=== PATIENT | female | born 1990 | race Two or more races ===

== ENCOUNTER → 2020-11-03 13:00 | Outpatient (BNVA) | payer OTHER, SELFPAY | PROVIDERS: Visit Provider Nurse Practitioner | DX: Z76.89 Persons encountering health services in other specified circumstances (principal) ==

== ENCOUNTER 2020-11-25 13:19 | Outpatient (REF) | payer OTHER, SELFPAY | END 2020-11-25 13:20 | disposition home or self-care (01) | LOC: HO.LNP 13:19 | PROVIDERS: Visit Provider Nurse Practitioner | DX: K21.9 Gastro-esophageal reflux disease without esophagitis (principal); K58.9 Irritable bowel syndrome, unspecified | CPT/HCPCS: 87338 ==

== ENCOUNTER 2021-03-27 09:40 | Outpatient (REF) | payer OTHER, SELFPAY ==
[2021-03-27 11:55] LABS: Basophils Absolute Auto 0.1 X10*3/uL (0.0-0.2); Eosinophils Absolute Auto 0.1 X10*3/uL (0.0-0.4); Imm Gran Abs Auto 0.01 X10*3/uL (0.00-0.03); MANUAL DIFF FLAG SCAN; PLT CLUMP 1; SCAN SMEAR FLAG 1
[2021-03-27 11:57] LABS: Basophils Percent Auto 1.1 % (0-2); Eosinophils Percent Auto 2.2 % (0-4); Hematocrit 41.3 % (37-47); Hemoglobin 13.8 g/dl (12.0-16.0); Imm Gran Pct Auto 0.2 % (0.0-0.4); Lymphocytes Absolute Auto 3.3 X10*3/uL (1.2-4.9); Lymphocytes Percent Auto 50.9 % (20-40); Mean Corpuscular HGB Conc 33.4 g/dl (31.0-35.0); Mean Corpuscular Hemoglobin 30.7 pg (27.0-33.0); Monocytes Absolute Auto 0.3 X10*3/uL (0.1-1.2); Monocytes Percent Auto 4.7 % (2-11); Neutrophils Absolute Auto 2.6 X10*3/uL (2.0-8.3); Neutrophils Percent Auto 40.9 % (45-73); Platelet Count 180 X10*3/uL (160-400); Red Blood Count 4.49 X10*6/uL (4.20-5.50); Red Cell Distribution Width 12.2 % (11.0-16.0); White Blood Count 6.4 X10*3/uL (4.8-10.8)
[2021-03-27 12:24] LABS: SLIDE REVIEW VERIFIED
[2021-03-27 13:52] LABS: Alanine Aminotransferase 9 U/L (0-31); Albumin Level 4.4 g/dL (3.5-5.0); Alkaline Phosphatase 65 U/L (39-117); Anion Gap 19 (12-20); Aspartate Amino Transferase 24 U/L (5-31); Blood Urea Nitrogen 8 mg/dL (9-16); Calcium 9.2 mg/dL (8.4-10.2); Carbon Dioxide 14 mmol/L (22-29); Chloride 110 mmol/L (96-108); Estimated Glomerular Filt Rate > 60; Glucose Random 85 mg/dL (60-115); Potassium 5.4 mmol/L (3.3-5.1); Sodium 138 mmol/L (135-145)
== END 2021-03-27 09:41 | disposition home or self-care (01) ==
LOC: HO.LAB 09:40
PROVIDERS: Visit Provider Nurse Practitioner
DX: R10.13 Epigastric pain (principal); K21.9 Gastro-esophageal reflux disease without esophagitis; K58.2 Mixed irritable bowel syndrome; R14.0 Abdominal distension (gaseous); Z79.899 Other long term (current) drug therapy
CPT/HCPCS: 36415; 80053; 85025; 99212

== ENCOUNTER 2021-04-14 08:10 | Outpatient (REF) | payer OTHER, SELFPAY ==
--- NOTE | ~2021-04-14 | US_ITS ---
EXAMINATION: US ABDOMEN COMPLETE CLINICAL INFORMATION: Epigastric pain. COMPARISON: Limited abdominal ultrasound 11/07/2019. Ultrasound abdomen complete 07/11/2019. TECHNIQUE: Real-time imaging of the abdominal viscera. FINDINGS: PANCREAS: Not well visualized due to bowel gas ABDOMINAL AORTA: The proximal, mid, and distal segments are normal in caliber. INFERIOR VENA CAVA: Visualized portions are normal. LIVER: The liver is normal in size. The liver contour is normal. Parenchymal echogenicity is normal. No focal hepatic lesion. There is no intrahepatic biliary duct dilatation seen. GALLBLADDER: Normal. The gallbladder is physiologically distended without evidence of stones, sludge, polyps, wall thickening or pericholecystic fluid. COMMON BILE DUCT: Normal in caliber measuring 0.5 cm in diameter. RIGHT KIDNEY: Normal. No hydronephrosis. No renal calculi or focal parenchymal lesions. The kidney measures 11.0 cm in maximum dimension. LEFT KIDNEY: There is a 4 mm echogenic density with twinkle artifact questionable for stones in the mid and lower pole. No hydronephrosis or focal parenchymal lesions. The kidney measures 10.4 cm in maximum dimension. SPLEEN: Normal. The spleen measures 9.0 cm in maximum dimension. FREE FLUID: None. US/US abdomen complete IMPRESSION: Question small left renal stones otherwise unremarkable exam.
== END 2021-04-14 08:11 | disposition home or self-care (01) ==
LOC: HO.US 08:10
PROVIDERS: Visit Provider Nurse Practitioner
DX: R10.13 Epigastric pain (principal); R14.0 Abdominal distension (gaseous)
CPT/HCPCS: 76700

== ENCOUNTER 2021-07-07 05:51 | Emergency (ER) | payer OTHER, SELFPAY ==
--- NOTE | ~2021-07-07 | XR_ITS ---
EXAMINATION: XR KNEE, RIGHT CLINICAL INFORMATION: Fall. Pain. COMPARISON: None TECHNIQUE: Four views of the right knee. FINDINGS: Bones and soft tissues are normal. No fracture or joint effusion. Alignment is anatomic. Joint spaces are well maintained. No abnormal soft tissue calcification. XR/XR knee RT 4V IMPRESSION: Normal right knee.
[2021-07-07 06:40] VITALS: BP 122/73; PULSE 73; RESP 16; TEMP 36.8; O2SAT 99; BMI 27.7
--- NOTE | 2021-07-07 09:21 | ED_ITS ---
HPI - Extremity Injury (Lower) General Chief Complaint: Extremity Injury, Lower Stated Complaint: fall from possible dislocated knee Time Seen by Provider: 07/07/21 09:09 Source: patient Mode of arrival: ambulatory Limitations: language barrier ([place] Citizen-speaking) History of Present Illness HPI Narrative: 30-year-old female presenting to the ED with complaints of right intermittent knee pain over the past month after she twisted her knee in [place] while taking her shoes off and she was seen by the doctor there and then they performed an x-ray and told her that she had this alignment of her patella and some fluid in her knee joint and they recommended surgery although patient declined surgery due to she was in [place] and wanted to come back to the [place] to get surgery if she needed surgery. She reports before she twisted her knee in [place] she was already having problems with her right knee prior to that. She reports this morning she twisted her knee again and she had extreme pain although her pain has subsided since she has been here. She reports that she is taking Motrin and she has only mild to no symptomatic relief. She reports she has been trying to find a primary care provider and she has been unable to find a primary care provider. She is requesting an MRI at this time. She denies any other symptoms complaints or concerns. She denies head injury or loss of consciousness. She denies any weakness. MD complaint: knee injury Onset (ago): month(s) (1 month ago) Injury: Right: knee Type of Injury: other (Patient reports she twisted the knee) Place: street/outdoors (In [facility]) Severity: mild Relieving factors: nothing Exacerbating factors: weight bearing, movement and palpation Context: other (Twist injury) Other symptoms: none Treatments prior to arrival: NSAIDS and splint (Knee immobilizer) Related Data Home Medications Medication Instructions Recorded Confirmed wheat dextrin 3 gram/3.5 gram oral 1.5 g PO BID 10/06/20 10/06/20 powder packet (Benefiber Clear Sugar Free(dextrin)) Previous Rx's Medication Instructions Recorded dicyclomine 10 mg capsule See Rx Instructions PO QID PRN 11/03/20 #180 cap simethicone 180 mg capsule 180 mg PO TID 30 Days #90 cap 11/03/20 metronidazole 500 mg tablet 500 mg PO TID 10 Days #30 tab 03/27/21 (Flagyl) pantoprazole 40 mg tablet,delayed 40 mg PO BID 30 Days #60 tab 03/27/21 release (Protonix) hydrocodone 5 mg-acetaminophen 325 1 tab PO Q8H PRN #10 tab 07/07/21 mg tablet ibuprofen 800 mg tablet 800 mg PO Q8H PRN #14 tab 07/07/21 lidocaine HCl 4 % topical cream 1 appl TOPICAL BID PRN #120 g 07/07/21 (Aspercreme (lidocaine HCl)) Allergies Allergy/AdvReac Type Severity Reaction Status Date / Time No Known Allergies Allergy Verified 03/27/21 09:44 [No Known Allergies*] Review of Systems Review of Systems: Constitutional : No lethargy ENT/Mouth : No Ear Pain, No Nasal discharge/drainage Eyes: No Eye Pain, No Swelling, No Redness, No Foreign Body, No Vision Changes Cardiovascular : No Chest Pain, No SOB Respiratory : No Cough Gastrointestinal : No Nausea, No Vomiting, No abdominal Pain Genitourinary : No Dysuria, No Urinary Frequency, No Urinary Incontinence, No Urgency, No Flank Pain Musculoskeletal : + joint pain, No neck stiffness, No back pain/injury Skin : No lacerations Neuro : No unsteady gait, No Paresthesias, No Loss of Consciousness, No altered mental status, No Headache Yes all other systems are reviewed and are negative [facility] Past Medical History Attestation statement: The following information was validated with the patient. Surgical History History of esophagogastroduodenoscopy Family History Family History Father Stroke Mother Hypothyroidism Social History Social History Alcohol intake: current Alcohol intake frequency: does not drink Advance Directives: No Advance Directives Information Provided: No Patient : No Physical Exam Vital Signs: Vital Signs: Last Vital Signs Temp 98.3 F 07/07/21 06:40 Pulse 73 07/07/21 06:40 Resp 16 07/07/21 06:40 BP 122/73 07/07/21 06:40 Pulse Ox 99 07/07/21 06:40 Body Mass Index 27.7 vital signs have been reviewed as normal and appeared to be correct. Blood pressure normal. Heart rate normal. Respiration rate normal. Temperature nor mal. Oxygen saturation normal. Appearance: Alert. Oriented X3. No acute distress. Head: Normal external exam. Normocephalic. Atraumatic. Eyes: PERRLA. EOMI. Conjunctiva and sclera normal. Eyelids normal. ENT:Pharynx normal. Uvula midline. Moist mucous membranes. Neck: Normal inspection. Neck supple. FROM. No adenopathy. No meningeal signs. CVS: Normal heart rate and rhythm. Respiratory: No respiratory distress. Painless inspiration. Back: Full range of motion noted. No rashes/lesion/induration/fluctuance or signs of infection noted. Skin: Skin warm and dry. Normal skin color. Normal skin turgor. No rashes/lesions/lacerations noted. Extremities: Patient mild tenderness to palpation to patella joint no obvious deformities or ligamentous laxity or signs of infection. Patient has full range of motion of the right knee. No soft tissue swelling or edema noted on my exam. No calf tenderness is noted bilaterally. No lower extremity edema. Extremi ties exhibit normal range of motion. Extremities nontender. Neuro: Oriented X 3. No motor deficit. No sensory deficit. Reflexes normal. Normal steady gait. No focal neuro deficits noted. Course Course Course Narrative: 30-year-old female presenting to the ED with intermittent right knee pain over the past month. X-ray obtained and negative for any acute processes. Patient requesting MRI although explained to her that she does not need an emergent MRI therefore I explained to her that she can keep wearing her knee immobilizer that she bought [id number] and she can follow-up with orthopedics over the next month and will DC home with symptomatic treatment instructions to return if any new or worsening symptoms to follow up with primary care provider with the possible referrals and I gave her for PCP that she will need to call on her own. She understands agrees with this plan. MDM - Extremity Injury (Lower) Medical Records Attestation: I reviewed the patient's medical records. Imaging Data Right knee x-ray: Attestation: I personally reviewed and interpreted this imaging study as follows: Radiologist's impression: FINDINGS: Bones and soft tissues are normal. No fracture or joint effusion. Alignment is anatomic. Joint spaces are well maintained. No abnormal soft tissue calcification.? XR/XR knee RT 4V IMPRESSION: Normal right knee. Discharge Plan Discharge Clinical Impression: Right knee sprain Patient Disposition: Home, Self-Care Instructions: Knee Sprain (ED), How to Use an Elastic Bandage (ED) Prescriptions: New ibuprofen 800 mg tablet 800 mg PO Q8H PRN (Reason: pain) Qty: 14 RF: 0 hydrocodone-acetaminophen 5-325 mg tablet 1 tab PO Q8H PRN (Reason: pain) Qty: 10 RF: 0 lidocaine HCl [Aspercreme (lidocaine HCl)] 4 % cream 1 appl topical BID PRN (Reason: pain) Qty: 120 RF: 0 No Action Benefiber Clear SF (dextrin) 3 gram/3.5 gram powder in packet 1.5 g PO BID RF: 0 dicyclomine 10 mg capsule See Rx Instructions PO QID PRN (Reason: bloating and cramp) Qty: 180 RF: 3 simethicone 180 mg capsule 180 mg PO TID 30 Days Qty: 90 RF: 3 metronidazole [Flagyl] 500 mg tablet 500 mg PO TID 10 Days Qty: 30 RF: 0 pantoprazole [Protonix] 40 mg tablet,delayed release (DR/EC) 40 mg PO BID 30 Days Qty: 60 RF: 6 Referrals: Jake Velasco MD [Physician] - 2 weeks Print Language: [place] Citizen
== END 2021-07-07 09:56 | disposition home or self-care (01) ==
PROVIDERS: Emergency Provider Emergency Medicine Emergency Medical Services
DX: S83.91XA Sprain of unspecified site of right knee, initial encounter (principal); X50.1XXA Overexertion from prolonged static or awkward postures, initial encounter; Y93.89 Activity, other specified; Y92.9 Unspecified place or not applicable; Y99.9 Unspecified external cause status
CPT/HCPCS: 73564; 99283

== ENCOUNTER → 2021-07-20 15:02 | Outpatient (BNVA) | payer OTHER, SELFPAY | PROVIDERS: Visit Provider Physician Assistant | DX: S83.91XA Sprain of unspecified site of right knee, initial encounter (principal) | CPT/HCPCS: 99202 ==

== ENCOUNTER → 2021-08-31 14:59 | Outpatient (BNVA) | payer OTHER, SELFPAY | PROVIDERS: Visit Provider Physician Assistant | DX: S83.91XD Sprain of unspecified site of right knee, subsequent encounter (principal) | CPT/HCPCS: 99212 ==

== ENCOUNTER 2021-09-01 13:00 | Outpatient (RCR) | payer OTHER, SELFPAY ==
--- NOTE | 2021-08-07 14:55 | MHC.PT.EP ---
[facility] [place] Office [place] Office [place] Office [address] Lidia Lopez [address] [phone] F: [phone] F: [phone] F: [phone] F: [phone] Physical Therapy Plan of Care Date of Evaluation: Date of Surgery: n/a Diagnosis: Sprain of R knee Assessment: Pt is presenting with R medial knee pain that began about 2 months ago due to tripping and falling. As a result she presenting with impairments in strength, joint line pain, knee ROM, and positive apleys. These impairments are limiting her ability to care for her 1 year old child, navigate stairs, ambulate, and complete ADLs at her PLOF. At this time sx are consistent with possible meniscal involvement and she would benefit from skilled PT to address her current limitations and to promote return to PLOF. Frequency and Duration: The patient will be seen 2x per week for 4 weeks Short Term Goals: Pt will demonstrate pain at rest to <3/10 in 2 weeks. Pt will demonstrate independence in HEP in 2 weeks. Pt will demonstrate improved knee strength by 1/3 MMT to improve strength for functional mobility in 2 weeks. Pt will demonstrate improved knee ROM to equal B for improved ability to ambulate in 2 weeks. Commercial Insulator Goals: 4 weeks - the patient will have no limiting pain in her R knee during gait with community ambulation to show improved activity tolerance. 4 weeks - pt willbe able to navigate stairs both ascending and descending with min to no pain for improved access to navigating her home. 4 weeks -patient to be able to return to all functional movements and ADL's without limiting knee pain to show return to PLOF. Treatment Plan: Modalities to reduce pain, spasms and effusion. Manual therapy to restore motion and function. Therapeutic exercise to improve strength and flexibility. Neuromuscular re-education for posture and balance. Therapeutic activities to return to functional activities of daily living. Electronically signed by: Carolina Russell PT DPT Please sign and return to therapist. Thank you for your referral.
== END 2021-09-11 08:00 | disposition home or self-care (01) ==
LOC: HO.PT 13:00
PROVIDERS: Visit Provider Physician Assistant
DX: S83.91XA Sprain of unspecified site of right knee, initial encounter (principal)
CPT/HCPCS: 97033; 97110; 97161; 97530

== ENCOUNTER 2021-09-08 18:56 | Outpatient (REF) | payer OTHER, SELFPAY ==
--- NOTE | ~2021-09-08 | MR_ITS ---
EXAMINATION: MR KNEE WITHOUT CONTRAST, RIGHT CLINICAL INFORMATION: Right knee pain. Instability. COMPARISON: Right knee radiographs dated 07/07/2021 TECHNIQUE: MRI of the knee without contrast was performed using routine sequences on a high-field scanner. FINDINGS: MENISCI: Medial Meniscus: Mild fraying of the posterior root. Lateral Meniscus: Intact. LIGAMENTS: Cruciate: Intact. Collateral: Intact. EXTENSOR MECHANISM: Intact. ARTICULAR CARTILAGE/BONE: Patellofemoral Compartment: Articular cartilage thinning at the superior aspect of the lateral trochlea. Tiny marginal osteophytes. Medial Compartment: Normal. Lateral Compartment: Normal. JOINT FLUID AND BURSAE: Trace joint effusion. Probable loose body posterior to the posterior horn of the medial meniscus measuring up to 0.7 cm in ML dimension. MR/MR knee RT wo con IMPRESSION: 1. Mild fraying of the medial meniscus posterior root. 2. Minimal patellofemoral arthrosis. 3. Trace joint effusion with a probable 0.7 cm loose body posterior to the medial meniscus posterior horn.
== END 2021-09-08 18:57 | disposition home or self-care (01) ==
LOC: HO.MRI 18:56
PROVIDERS: Visit Provider Physician Assistant
DX: S83.91XA Sprain of unspecified site of right knee, initial encounter (principal); X58.XXXA Exposure to other specified factors, initial encounter; Y93.9 Activity, unspecified; Y92.9 Unspecified place or not applicable; Y99.9 Unspecified external cause status
CPT/HCPCS: 73721

== ENCOUNTER → 2021-09-14 10:35 | Outpatient (BNVA) | payer OTHER, SELFPAY | PROVIDERS: Visit Provider Physician Assistant | DX: M23.91 Unspecified internal derangement of right knee (principal) | CPT/HCPCS: 20610; 99212; J1040 ==

== ENCOUNTER 2022-01-30 06:28 | Emergency (ER) | payer OTHER, SELFPAY ==
--- NOTE | ~2022-01-30 | US_ITS ---
EXAMINATION: US OBSTETRICAL, PELVIC AND TRANSVAGINAL CLINICAL INFORMATION: . Abdominal pain. COMPARISON: No prior examination for this . LMP: 01/02/2022. Gestational age by maternal dates is 4 weeks 0 days. Estimated date of delivery by maternal dates is 10/09/2022. TECHNIQUE: Transabdominal and transvaginal imaging was obtained. FINDINGS: The endometrium is thickened measuring up to 1.5 cm. No intrauterine gestational sac identified. No myometrial lesion. The uterus measures 9.7 x 4.3 cm. The right ovary is sonographically unremarkable measuring 2.6 x 1.8 x 2.0 cm. The left ovary measures 3.6 x 3.1 x 3.1 cm and contains a 1.7 x 1.6 x 2.1 cm heterogeneously echoic focus which may represent an early corpus luteum. Small amount of simple-appearing pelvic free fluid. US/US OB pelvic and transvaginal IMPRESSION: Thickened endometrium without an intrauterine gestational sac identified. Findings could represent too early to detect. Serial beta hCG and followup ultrasound in 5-7 days could help further evaluate. Possible early left ovarian corpus luteum. Small amount of simple pelvic free fluid.
--- NOTE | ~2022-01-30 | US_ITS ---
EXAMINATION: US ABDOMEN LIMITED CLINICAL INFORMATION: Right upper quadrant pain. COMPARISON: Abdominal ultrasound dated 04/14/2021. TECHNIQUE: Real-time imaging of the right upper quadrant abdominal viscera. FINDINGS: PANCREAS: Partially visualized and unremarkable. LIVER: Small vascular calcification measuring 0.7 cm. Otherwise unremarkable. The liver is normal in size. The liver contour is normal. Parenchymal echogenicity is normal. No focal hepatic lesion. There is no intrahepatic biliary duct dilatation seen. GALLBLADDER: Normal. The gallbladder is physiologically distended without evidence of stones, sludge, polyps, wall thickening or pericholecystic fluid. COMMON BILE DUCT: Normal in caliber measuring 0.3 cm in diameter. RIGHT KIDNEY: Normal. No hydronephrosis. No renal calculi or focal parenchymal lesions. The kidney measures 11.6 cm in maximum dimension. FREE FLUID: None. US/US abdomen limited IMPRESSION: Unremarkable examination.
[2022-01-30 06:32] VITALS: BP 115/76; PULSE 82; RESP 16; TEMP 36.9; O2SAT 100; BMI 27.4
--- NOTE | 2022-01-30 07:46 | ED_ITS ---
HPI - Abdominal Pain General Chief Complaint: Abdominal Pain Stated Complaint: abdominal pain Time Seen by Provider: 01/30/22 07:38 Source: patient History of Present Illness HPI narrative: This is a 31-year-old female who complains of upper abdominal pain for a few days. The patient has had nausea, and some diarrhea, not profuse diarrhea. She denies fever, has had chills. She denies any urinary symptoms. Her last menstrual period was January 02, she is not sure if she could be . Her pain is worse with eating. She has had significant nausea but no vomiting. She also has noticed that a oj on her skin on the left upper thigh Related Data Home Medications Medication Instructions Recorded Confirmed wheat dextrin 3 gram/3.5 gram oral 1.5 g PO BID 10/06/20 10/06/20 powder packet (Benefiber Clear Sugar Free(dextrin)) Previous Rx's Medication Instructions Recorded dicyclomine 10 mg capsule See Rx Instructions PO QID PRN 11/03/20 #180 cap simethicone 180 mg capsule 180 mg PO TID 30 Days #90 cap 11/03/20 metronidazole 500 mg tablet 500 mg PO TID 10 Days #30 tab 03/27/21 (Flagyl) pantoprazole 40 mg tablet,delayed 40 mg PO BID 30 Days #60 tab 03/27/21 release (Protonix) hydrocodone 5 mg-acetaminophen 325 1 tab PO Q8H PRN #10 tab 07/07/21 mg tablet ibuprofen 800 mg tablet 800 mg PO Q8H PRN #14 tab 07/07/21 lidocaine HCl 4 % topical cream 1 appl TOPICAL BID PRN #120 g 07/07/21 (Aspercreme (lidocaine HCl)) ondansetron 4 mg disintegrating 4 mg PO Q8H PRN #10 tab 01/30/22 tablet Allergies Allergy/AdvReac Type Severity Reaction Status Date / Time No Known Allergies Allergy Verified 09/14/21 10:49 [No Known Allergies*] Review of Systems Review of Systems Yes all other systems are reviewed and are negative Constitutional: Reports as per HPI and Denies fever(s) Eyes: Reports as per HPI and Reports no additional eye complaints Reports system reviewed and no additional complaints, except as documented, Reports as per HPI, Denies nasal congestion, Denies nasal discharge and Denies sore throat Cardiovascular: Reports as per HPI, Denies chest pain and Denies dyspnea Respiratory: Reports as per HPI, Denies cough and Denies dyspnea Gastrointestinal: Reports as per HPI, Reports abdominal pain, Reports diarrhea, Reports nausea and Denies vomiting Genitourinary: Reports as per HPI, Denies hematuria, Denies urinary frequency and Denies dysuria Musculoskeletal: Reports no additional musculoskeletal complaints and Denies nu mbness Skin/Breast: Reports as per HPI and Denies rash Reports as per HPI, Denies focal weakness and Denies numbness Psychiatric: Reports no additional psychiatric complaints and Reports as per HPI Endocrine: Reports no additional endocrine complaints and Reports as per HPI Hematologic/Lymphatic: Reports no additional hematologic/lymphatic complaints, Reports as per HPI and Reports other (No peripheral edema) [facility] Past Medical History Surgical History History of esophagogastroduodenoscopy Family History Family History Father Stroke Mother Hypothyroidism Social History Social History (Updated 09/14/21 @ 10:51 by Gopi Patton) Alcohol intake: current Alcohol intake frequency: does not drink Advance Directives: No Advance Directives Information Provided: No Patient : No Current occupational status: unemployed 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 Physical Exam ED Vital Signs: Vital Signs - 24 hr 01/30/22 06:32 Temperature 98.5 F Pulse Rate 82 Respiratory Rate 16 Blood Pressure 115/76 Pulse Oximetry 100 BMI result Body Mass Index 27.4 Const Other: Not ill appearing, moves easily on the [email or web address] Head: Yes normal to inspection Mouth: Normal oral and palatal mucosa present Throat: Yes posterior oropharynx normal Eyes General: appearance normal, both eyes and all related structures Resp Effort & Inspection: normal respiratory effort and able to speak in complete sentences Cardio Rate: regular rate Rhythm: regular rhythm Heart sounds: S1 normal heart sound present and S2 normal heart sound present GI Inspection: Yes normal to inspection and No distended Palpation (GI): Soft to palpation and Tenderness to palpation present (GI) (Epigastric, less tender lower quadrant) Auscultation: bowels sounds normal Skin Other: Area of hyperpigmentation left upper thigh, does not appear to be any acute lesions. Well-demarcated, not raise MDM - Abdominal Pain MDM Narrative Medical decision making narrative: Patient with upper abdominal pain and nausea, some diarrhea. Patient's last menstrual period was about month ago. She did have a baby about a year ago. She states the symptoms were similar with her prior . Ultrasound of the upper abdomen was negative for any acute pathology such as biliary disease. Lipase was normal. White blood cell count was normal. test was positive. Urinalysis was otherwise knee. Pelvic ultrasound revealed no gestational sac at this point however given the patient has early this is not surprising. Patient's pain was primarily upper abdominal, doubt ectopic clinically. Patient states she wishes to terminate the . Lab Data Attestation: I reviewed the patient's lab results. Result diagrams: 01/30/22 08:43 01/30/22 08:43 Labs: Lab Results 01/30/22 01/30/22 01/30/22 Range/Units 08:05 08:05 08:43 WBC 7.3 (4.8-10.8) X10*3/uL RBC 4.69 (4.20-5.50) X10*6/uL Hgb 14.4 (12.0-16.0) g/dl Hct 43.3 (37.0-47.0) % MCV 92.3 (80.0-98.0) fL MCH 30.7 (27.0-33.0) pg MCHC 33.3 (31.0-35.0) g/dl RDW 12.3 (11.0-16.0) % Plt Count 243 (160-400) X10*3/uL MPV 10.1 (9.4-12.3) fL Immature Gran % (Auto) 0.3 (0.0-0.4) % Neut % (Auto) 52.1 (45-73) % Lymph % (Auto) 41.2 H (20-40) % [place] % (Auto) 4.9 (2-11) % Eos % (Auto) 1.0 (0-4) % Baso % (Auto) 0.5 (0-2) % Lymph # (Auto) 3.0 (1.2-4.9) X10*3/uL [place] # (Auto) 0.4 (0.1-1.2) X10*3/uL Eos # (Auto) 0.1 (0.0-0.4) X10*3/uL Baso # (Auto) 0.0 (0.0-0.2) X10*3/uL Abs Immat Gran (auto) 0.02 (0.00-0.03) X10*3/uL Absolute Neuts (auto) 3.8 (2.0-8.3) x10*3/uL Absolute Nucleated RBC 0.000 (0.0-0.012) X10*3/uL Nucleated RBC % (auto) 0.0 (0.0-0.2) /100WBC Sodium (135-145) mmol/L Potassium (3.3-5.1) mmol/L Chloride (96-108) mmol/L Carbon Dioxide (22-29) mmol/L Anion Gap (12-20) BUN (9-16) mg/dL Creatinine (0.5-1.4) mg/dL Estim Creat Clear Calc Estimated GFR Random Glucose (60-115) mg/dL Calcium (8.4-10.2) mg/dL Total Bilirubin (0.0-1.0) mg/dL AST (5-31) U/L ALT (0-31) U/L Alkaline Phosphatase (39-117) U/L Total Protein (6.5-8.0) g/dL Albumin (3.5-5.0) g/dL Lipase (8-78) U/L Beta HCG, Quant mIU/mL Urine Color YELLOW Urine Appearance HAZY Urine pH 7.0 (5.0-8.0) Ur Specific [place] 1.020 (1.005-1.025) Urine Protein NEG (NEG-TRACE) MG/DL Urine Glucose (UA) NEG (NEG) MG/DL Urine Ketones NEG (NEG) MG/DL Urine Blood NEG (NEG) Urine Nitrite NEG (NEG) Ur Leukocyte Esterase NEG (NEG) Urine Test POSITIVE H (NEGATIVE) 01/30/22 Range/Units 08:43 WBC (4.8-10.8) X10*3/uL RBC (4.20-5.50) X10*6/uL Hgb (12.0-16.0) g/dl Hct (37.0-47.0) % MCV (80.0-98.0) fL MCH (27.0-33.0) pg MCHC (31.0-35.0) g/dl RDW (11.0-16.0) % Plt Count (160-400) X10*3/uL MPV (9.4-12.3) fL Immature Gran % (Auto) (0.0-0.4) % Neut % (Auto) (45-73) % Lymph % (Auto) (20-40) % [place] % (Auto) (2-11) % Eos % (Auto) (0-4) % Baso % (Auto) (0-2) % Lymph # (Auto) (1.2-4.9) X10*3/uL [place] # (Auto) (0.1-1.2) X10*3/uL Eos # (Auto) (0.0-0.4) X10*3/uL Baso # (Auto) (0.0-0.2) X10*3/uL Abs Immat Gran (auto) (0.00-0.03) X10*3/uL Absolute Neuts (auto) (2.0-8.3) x10*3/uL Absolute Nucleated RBC (0.0-0.012) X10*3/uL Nucleated RBC % (auto) (0.0-0.2) /100WBC Sodium 138 (135-145) mmol/L Potassium 4.4 (3.3-5.1) mmol/L Chloride 106 (96-108) mmol/L Carbon Dioxide 25 (22-29) mmol/L Anion Gap 11 L (12-20) BUN 8 L (9-16) mg/dL Creatinine 0.70 (0.5-1.4) mg/dL Estim Creat Clear Calc 124.3 Estimated GFR > 60 Random Glucose 81 (60-115) mg/dL Calcium 9.9 D (8.4-10.2) mg/dL Total Bilirubin 2.2 H (0.0-1.0) mg/dL AST 15 (5-31) U/L ALT 10 (0-31) U/L Alkaline Phosphatase 58 (39-117) U/L Total Protein 8.0 (6.5-8.0) g/dL Albumin 4.6 (3.5-5.0) g/dL Lipase 53 (8-78) U/L Beta HCG, Quant 214 mIU/mL Urine Color Urine Appearance Urine pH (5.0-8.0) Ur Specific [place] (1.005-1.025) Urine Protein (NEG-TRACE) MG/DL Urine Glucose (UA) (NEG) MG/DL Urine Ketones (NEG) MG/DL Urine Blood (NEG) Urine Nitrite (NEG) Ur Leukocyte Esterase (NEG) Urine Test (NEGATIVE) Imaging Data US pelvic: Radiologist's impression: IMPRESSION: Thickened endometrium without an intrauterine gestational sac identified. Findings could represent too early to detect. Serial beta hCG and followup ultrasound in 5-7 days could help further evaluate. ? Possible early left ovarian corpus luteum. ? Small amount of simple pelvic free fluid. US abdomen: Radiologist's impression: IMPRESSION: Unremarkable examination. Discharge Plan Discharge Clinical Impression: Nausea, First trimester Patient Disposition: Home, Self-Care Instructions: Acute Nausea and Vomiting (ED), First Trimester (ED) Additional Instructions: Drink plenty of fluids. Use Zofran as prescribed for nausea. Follow-[facility] with [facility] OBGYN [facility] her . Return for any new or worsened symptoms Prescriptions: New ondansetron 4 mg tablet,disintegrating 4 mg PO Q8H PRN (Reason: nausea and vomiting) Qty: 10 0RF No Action ibuprofen 800 mg tablet 800 mg PO Q8H PRN (Reason: pain) Qty: 14 0RF lidocaine HCl [Aspercreme (lidocaine HCl)] 4 % cream 1 appl topical BID PRN (Reason: pain) Qty: 120 0RF hydrocodone-acetaminophen 5-325 mg tablet 1 tab PO Q8H PRN (Reason: pain) Qty: 10 0RF Rx Instructions: Patient may request partial fill Benefiber Clear SF (dextrin) 3 gram/3.5 gram powder in packet 1.5 g PO BID 0RF Rx Instructions: mix into at least 4 oz water or juice before administering dicyclomine 10 mg capsule See Rx Instructions PO QID PRN (Reason: bloating and cramp) Qty: 180 3RF Rx Instructions: 1-2 caps po qid PO 4 times a day PRN; simethicone 180 mg capsule 180 mg PO TID 30 Days Qty: 90 3RF Rx Instructions: after meals metronidazole [Flagyl] 500 mg tablet 500 mg PO TID 10 Days Qty: 30 0RF pantoprazole [Protonix] 40 mg tablet,delayed release (DR/EC) 40 mg PO BID 30 Days Qty: 60 6RF Rx Instructions: Stopping the omperazole and famotidine as she has failed these. [facility]errals[facility]Outside] - [facility] days (Call for an appointment, to evaluate for termination of ) Interventions: ED Discharge Assessment Last Done: 01/30/22 10:26 Discharge Date/Time: 01/30/22 10:26
[2022-01-30] MEDS: 0.9 % Sodium Chloride 1,000 ML 999 ML IV (08:07)
[2022-01-30 08:17] LABS: Appearance Urine HAZY; Color Urine YELLOW; Glucose Urine UA NEG (NEG); Leukocyte Esterase Urine NEG (NEG); Nitrite Urine NEG (NEG); Urine Blood NEG (NEG); Urine Ketones NEG (NEG); Urine Protein NEG (NEG-TRACE)
[2022-01-30 08:18] LABS: UPreg QC Valid YES; Urine Pregnancy POSITIVE (NEGATIVE)
[2022-01-30 08:47] LABS: MANUAL DIFF FLAG NO
[2022-01-30 08:49] LABS: Basophils Percent Auto 0.5 % (0-2); Eosinophils Absolute Auto 0.1 X10*3/uL (0.0-0.4); Hematocrit 43.3 % (37.0-47.0); Hemoglobin 14.4 g/dl (12.0-16.0); Imm Gran Abs Auto 0.02 X10*3/uL (0.00-0.03); Imm Gran Pct Auto 0.3 % (0.0-0.4); Lymphocytes Percent Auto 41.2 % (20-40); Mean Corpuscular HGB Conc 33.3 g/dl (31.0-35.0); Mean Corpuscular Hemoglobin 30.7 pg (27.0-33.0); Mean Corpuscular Volume 92.3 fL (80.0-98.0); Mean Platelet Volume 10.1 fL (9.4-12.3); Monocytes Absolute Auto 0.4 X10*3/uL (0.1-1.2); Monocytes Percent Auto 4.9 % (2-11); Neutrophils Absolute Auto 3.8 x10*3/uL (2.0-8.3); Neutrophils Percent Auto 52.1 % (45-73); Platelet Count 243 X10*3/uL (160-400); Red Blood Count 4.69 X10*6/uL (4.20-5.50); Red Cell Distribution Width 12.3 % (11.0-16.0); White Blood Count 7.3 X10*3/uL (4.8-10.8)
[2022-01-30 09:05] LABS: Alanine Aminotransferase 10 U/L (0-31); Albumin Level 4.6 g/dL (3.5-5.0); Alkaline Phosphatase 58 U/L (39-117); Anion Gap 11 (12-20); Aspartate Amino Transferase 15 U/L (5-31); Bilirubin Total 2.2 mg/dL (0.0-1.0); Blood Urea Nitrogen 8 mg/dL (9-16); Calcium 9.9 mg/dL (8.4-10.2); Carbon Dioxide 25 mmol/L (22-29); Chloride 106 mmol/L (96-108); Creatinine Clr Calc Pharmacy 124.3; Estimated Glomerular Filt Rate > 60; Glucose Random 81 mg/dL (60-115); Lipase 53 U/L (8-78); Potassium 4.4 mmol/L (3.3-5.1); Sodium 138 mmol/L (135-145)
[2022-01-30 09:11] LABS: HCG Quantitative 214 mIU/mL
== END 2022-01-30 10:26 | disposition home or self-care (01) ==
PROVIDERS: Emergency Provider Emergency Medicine
DX: R10.10 Upper abdominal pain, unspecified (principal); R11.0 Nausea; Z33.1 Pregnant state, incidental
CPT/HCPCS: 36415; 76705; 76801; 76817; 80053; 81003; 81025; 83690; 84702; 85025; 96360; 99284

== ENCOUNTER 2022-02-02 14:44 | Outpatient (REF) | payer OTHER, SELFPAY ==
--- NOTE | ~2022-02-02 | US_ITS ---
EXAMINATION: US OBSTETRICAL ULTRASOUND CLINICAL INFORMATION: Hemorrhage in early . Concern for ectopic . COMPARISON: Previous pelvic ultrasound 01/30/2022. LMP: 01/02/2022. Gestational age by maternal dates is 4 weeks 3 days. Estimated date of delivery by maternal dates is 10/09/2022. TECHNIQUE: Transabdominal and transvaginal pelvic ultrasound was performed. Transvaginal exam was performed for better visualization of the uterus and ovaries. FINDINGS: The uterus is retroverted. No focal uterine lesion is seen. Endometrial thickness is upper normal measuring 1.5 cm. No intrauterine is seen. The right ovary is normal-appearing and measures 2.9 x 1.4 x 1.6 cm. Left ovary measures 3.7 x 3.8 x 3.4 cm. There is a 2.3 x 1.3 x 2 cm iso to hypoechoic lesion in the left ovary questionable for a corpus luteum. There are 2 new simple left ovarian cysts measuring 1.9 x 1.6 x 2.2 cm and 1.4 x 1.2 x 1.8 cm. There is a small to moderate amount of fluid in the pelvis. This appears to represent simple fluid. This is increased from 01/30/2022 exam. US/US OB pelvic and transvaginal IMPRESSION: No intrauterine seen. Upper normal thickness endometrium measuring 1.5 cm. Prominent left ovary with question 2.3 x 1.3 x 2 cm corpus luteum and 2 new simple cysts. Small to moderate amount of fluid in the pelvis which is increased from 01/30/2022 exam. Differential remains early intrauterine , spontaneous and ectopic . Correlation with quantitative beta hCG level and follow-up OB ultrasound recommended.
== END 2022-02-02 14:45 | disposition home or self-care (01) ==
LOC: HO.US 14:44
PROVIDERS: Visit Provider Obstetrics & Gynecology
DX: O20.9 Hemorrhage in early pregnancy, unspecified (principal)
CPT/HCPCS: 76801; 76817

== ENCOUNTER 2022-02-02 16:05 | Outpatient (REF) | payer OTHER, SELFPAY ==
[2022-02-02 18:26] LABS: HCG Quantitative 979 mIU/mL
[2022-02-03 09:25] LABS: CT PCR NOT DETECTED (Not Detect.); NG PCR NOT DETECTED (Not Detect.)
== END 2022-02-02 16:06 | disposition home or self-care (01) ==
LOC: HO.LAB 16:05
PROVIDERS: Visit Provider Obstetrics & Gynecology
DX: O20.9 Hemorrhage in early pregnancy, unspecified (principal)
CPT/HCPCS: 36415; 84702; 86850; 86900; 86901; 87491; 87591

== ENCOUNTER 2022-02-04 15:47 | Outpatient (REF) | payer OTHER, SELFPAY ==
[2022-02-04 17:16] LABS: HCG Quantitative 2499 mIU/mL
== END 2022-02-04 15:48 | disposition home or self-care (01) ==
LOC: HO.LAB 15:47
PROVIDERS: Visit Provider Obstetrics & Gynecology
DX: Z34.90 Encounter for supervision of normal pregnancy, unspecified, unspecified trimester (principal)
CPT/HCPCS: 36415; 84702

== ENCOUNTER 2022-02-09 15:50 | Outpatient (REF) | payer OTHER, SELFPAY ==
--- NOTE | ~2022-02-09 | US_ITS ---
EXAMINATION: US OBSTETRICAL ULTRASOUND CLINICAL INFORMATION: Abdominal pain. Rule out ectopic. COMPARISON: None. LMP: 01/02/2022. Gestational age by maternal dates is 5 weeks 3 days. Estimated date of delivery by maternal dates is 10/09/2022. TECHNIQUE: Transabdominal imaging of pelvis is performed. FINDINGS: There is a single intrauterine gestational sac with visible yolk sac, pole and gestational sac. There is no significant subchorionic hemorrhage or hematoma. HR: Not visualized. CRL (crown rump length): Measures 0.26 cm corresponding to 5 weeks and 6 days). JUS (estimated date of delivery): 10/06/2022 +/- 4 days. MATERNAL ADNEXA: The right maternal ovary measures 2.5 x 1.7 x 1.7 cm. No focal lesion seen. The left maternal ovary measures 4.0 x 4.0 x 4.1 cm. There are several anechoic cysts measuring 2.6 x 2.7 x 2.1 cm and 2.2 x 1.5 x 2.0 cm. There is an anechoic lesion with echogenic garcia and echogenic area within likely a corpus luteal cyst. There is no significant maternal adnexal mass. No maternal pelvic ascites. US/US OB pelvic and transvaginal IMPRESSION: 1. Single intrauterine gestation with ultrasound gestational age of 5 weeks and 6 days +/- 4 days. heartbeat is not seen likely too early to visualize. 2. Estimated date of delivery is 10/06/2022 +/- 4 days. 3. There are two simple cysts and a corpus luteal cyst left ovary.
[2022-02-09 17:14] LABS: HCG Quantitative 10464 mIU/mL
== END 2022-02-09 15:51 | disposition home or self-care (01) ==
LOC: HO.US 15:50
PROVIDERS: Visit Provider Obstetrics & Gynecology
DX: Z34.90 Encounter for supervision of normal pregnancy, unspecified, unspecified trimester (principal)
CPT/HCPCS: 36415; 76801; 76817; 84702

== ENCOUNTER → 2022-02-10 15:48 | Outpatient (BNVA) | payer OTHER, SELFPAY | PROVIDERS: Visit Provider Obstetrics & Gynecology | DX: Z34.90 Encounter for supervision of normal pregnancy, unspecified, unspecified trimester (principal) ==

== ENCOUNTER 2022-02-26 | Outpatient (REF) | payer OTHER, SELFPAY | END 2022-02-26 00:01 | LOC: CF | PROVIDERS: Visit Provider Obstetrics & Gynecology | DX: O26.859 Spotting complicating pregnancy, unspecified trimester (principal); Z3A.00 Weeks of gestation of pregnancy not specified | CPT/HCPCS: 99202 ==

== ENCOUNTER → 2022-10-27 14:29 | Outpatient (BNVA) | payer OTHER, SELFPAY | PROVIDERS: Visit Provider Nurse Practitioner | DX: K58.2 Mixed irritable bowel syndrome (principal); K21.9 Gastro-esophageal reflux disease without esophagitis; R14.0 Abdominal distension (gaseous) | CPT/HCPCS: 99212 ==

== ENCOUNTER 2023-09-21 12:43 | Emergency (ER) | payer OTHER, SELFPAY ==
[2023-09-21 14:07] VITALS: BP 125/67; PULSE 82; RESP 16; TEMP 36.8; O2SAT 100; BMI 27.4
--- NOTE | 2023-09-21 17:53 | ED_ITS ---
HPI - Extremity Problem General Chief complaint: Extremity Injury, Upper Stated complaint: R Thumb Injury 09/20/23 Time Seen by Provider: 09/21/23 16:11 Source: patient and RN notes reviewed Mode of arrival: ambulatory Limitations: no limitations History of Present Illness HPI Narrative: This is a 33-year-old Khmer-speaking female presenting to the emergency department for evaluation of puncture wound to right hand which occurred yesterday. Patient states that she was cutting a piece of tape and suddenly she accidentally punctured her right hand. Immediately after this puncture wound the area started to bleed. She started to feel faint. Patient states that she has a history of feeling pain after seeing the sight of blood. She denies loss of consciousness. Reports that she is right handed. No difficulty moving her hand. Her tetanus is not up-to-date therefore she is here in the emergency room for further evaluation. She denies any chest pain, shortness of breath, dizziness, lightheadedness, headaches. She is otherwise feeling well and is only wanting her tetanus shot today. No other complaints or concerns at this time. MD Complaint: extremity pain Pain Consistency: constant Location: right and upper extremity Quality: aching Radiation: none Relieving factors: nothing Exacerbating factors: nothing Associated symptoms: denies other symptoms Related Data Previous Rx's Medication Instructions Recorded ondansetron 4 mg disintegrating 4 mg PO Q8H PRN nausea and 01/30/22 tablet vomiting #10 tabs simethicone 180 mg capsule 180 mg PO TID 30 days #90 caps 10/27/22 wheat dextrin 3 gram/3.5 gram oral 1.5 g PO BID #60 ea 10/27/22 powder packet (Benefiber Clear Sugar Free(dextrin)) pantoprazole 40 mg tablet,delayed 40 mg PO BID 90 days #180 tabs 04/26/23 release (Protonix) Allergies Allergy/AdvReac Type Severity Reaction Status Date / Time No Known Allergies Allergy Verified 09/21/23 14:07 [No Known Allergies*] Review of Systems Review of Systems: Yes all other systems are reviewed and are negative [facility] Past Medical History Medical History First trimester bleeding Surgical History History of esophagogastroduodenoscopy Family History Family History Father Stroke Mother Hypothyroidism Social History Social History Alcohol intake: current Alcohol intake frequency: does not drink Advance Directives: No Advance Directives Information Provided: No Current occupational status: unemployed 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 Physical Exam Vital Signs: Vital Signs: Last Vital Signs Temp 98.3 F 09/21/23 14:07 Pulse 82 09/21/23 14:07 Resp 16 09/21/23 14:07 BP 125/67 09/21/23 14:07 Pulse Ox 100 09/21/23 14:07 O2 Del Method Room Air 09/21/23 14:07 BMI result Body Mass Index 27.4 Const: Other: General: Awake, alert, and oriented X3. No acute distress. HEENT: Normal inspection CVS: Normal heart rate and rhythm. Pulses normal. Respiratory: No respiratory distress Skin: Warm, dry, no rashes noted to exposed skin. Normal skin color. Normal skin turgor. Extremities: Right hand with 1 mm puncture wound noted to the dorsum of right hand, specifically in between the web space of the 1st and 2nd metacarpal. No bony tenderness. Patient has full range of motion of the thumb in all digits. Radial pulse 2 +. No surrounding erythema or edema. Neuro: Oriented X 3. No motor deficit. No sensory deficit. Medications Administered Discontinued Medications Generic Name Dose Route Start Last Admin Trade Name Freq PRN Reason Stop Dose Admin Bacitracin 1 appl 09/21/23 17:53 09/21/23 18:08 Bacitracin Oint 0.9 Gm Packet TOPICAL 09/21/23 17:54 1 appl ONCE ONE Administration Protocol Diphtheria/Tetanus/Acell Pertussis 0.5 ml 09/21/23 17:53 09/21/23 18:08 Diphth,Pertus(Acell),Tet Adult 0.5 Ml Syringe IM 09/21/23 17:54 0.5 ml .ONCE ONE Administration Medical Decision Making Medical Decision Making MDM Narrative: This is a 33-year-old female presenting to the emergency department for evaluation of puncture wound to right hand. On arrival, vital signs within normal limits. This wound was accidental, denies any self-inflicted wounds. She is concerned as she knows her tetanus immunization is not up-to-date. Patient has full range of motion of her right hand and digits. No surrounding erythema or edema to suggest wound infection. Wound dressed with bacitracin, patient given tetanus in department. Patient has no bony tenderness to suggest an x-ray at this time. Given strict return precautions. Patient understands and agrees with plan. Patient stable for discharge. Differential Diagnosis Differential Diagnoses: The differential diagnosis associated with the presentation includes Puncture wound, cellulitis, abrasion Discharge Plan Discharge Clinical Impression: Puncture wound of finger of right hand Patient Disposition: Home, Self-Care Instructions: Puncture Wound (ED) Additional Instructions: Please keep wound clean and dry. We applied bacitracin which is a antibiotic ointment. You can buy this [id number] if needed. We updated your tetanus shot in the department today. Watch for any signs infection including but not limited to increased redness, swelling, drainage, fevers or chills. Return if any of these occur. Mantenga la herida limpia y seca. Le aplicamos bacitracina, que es alyce pomada antibi?myron. Puede comprarlo sin receta si es necesario. Actualizamos [place] vacuna contra el t?tanos en el departamento hoy. Est? atento a cualquier signo de infecci?n, incluidos, entre otros, aumento del enrojecimiento, hinchaz?n, secreci?n, fiebre o escalofr?os. Devu?lvalo si ocurre alguno de estos. Prescriptions: No Action pantoprazole [Protonix] 40 mg tablet,delayed release (DR/EC) 40 mg PO BID 90 Days Qty: 180 2RF Rx Instructions: Stopping the omperazole and famotidine as she has failed these. ondansetron 4 mg tablet,disintegrating 4 mg PO Q8H PRN (Reason: nausea and vomiting) Qty: 10 0RF Benefiber Clear SF (dextrin) 3 gram/3.5 gram powder in packet 1.5 g PO BID Qty: 60 3RF Rx Instructions: mix into at least 4 oz water or juice before administering simethicone 180 mg capsule 180 mg PO TID 30 Days Qty: 90 3RF Rx Instructions: after meals Interventions: ED Discharge Assessment Last Done: 09/21/23 18:22 Discharge Date/Time: 09/21/23 18:22
[2023-09-21] MEDS: Diphth,Pertus(ACell),Tet Adult 0.5 ML SYRINGE IM (18:08)
[2023-09-21] MEDS: Bacitracin Oint 0.9 GM PACKET 1 APPL TOPICAL (18:08)
== END 2023-09-21 18:22 | disposition home or self-care (01) ==
PROVIDERS: Emergency Provider Emergency Medicine
DX: S61.431A Puncture wound without foreign body of right hand, initial encounter (principal); W45.8XXA Other foreign body or object entering through skin, initial encounter; Y93.9 Activity, unspecified; Y92.9 Unspecified place or not applicable; Y99.9 Unspecified external cause status
CPT/HCPCS: 90471; 90715; 99282; 99284

== ENCOUNTER 2024-02-11 12:07 | Emergency (ER) | payer OTHER, SELFPAY ==
--- NOTE | ~2024-02-11 | CT_ITS ---
EXAMINATION: CT ABDOMEN AND PELVIS WITHOUT CONTRAST CLINICAL INFORMATION: Abdominal pain and black stool COMPARISON: Abdominal ultrasound 01/30/2022 TECHNIQUE: Multidetector volumetric imaging was performed from the superior aspect of the liver through the pubic symphysis. Sagittal and coronal reformatted images were obtained on the technologist's workstation. This CT examination was performed using dose optimization techniques as appropriate, variously including the following: *Automated exposure control *Adjustment of mA and/or kV according to patient size (this includes techniques or standardized protocols for targeted exams where dose is matched to indication/reason for exam; i.e. extremities or head) *Use of iterative reconstruction technique DLP: 473 mGy-cm FINDINGS: LUNG BASES: Unremarkable. ABDOMINAL AND PELVIC WALL: Unremarkable. LIVER AND BILIARY TREE: Calcified right hepatic lobe granuloma. GALLBLADDER: Unremarkable. PANCREAS: Unremarkable. SPLEEN: Unremarkable. ADRENAL GLANDS: Unremarkable. KIDNEYS AND URETERS: Unremarkable. GASTROINTESTINAL TRACT: Large volume of desiccated stool in the colon. Colonic diverticulosis without evidence of diverticulitis. Normal appendix. Lack of intravenous contrast limits assessment for GI bleeding. VASCULAR: Unremarkable. LYMPH NODES/PERITONEUM: No lymphadenopathy. FREE FLUID: None. BLADDER: Unremarkable. PELVIC VISCERA: Retroflexed uterus. Intrauterine device in place. OSSEOUS STRUCTURES: Unremarkable. CT/CT abdomen pelvis wo IV con IMPRESSION: 1. Colonic diverticulosis without evidence of diverticulitis. Lack of intravenous contrast large volume of desiccated stool within the colon limits assessment for GI bleeding.
[2024-02-11 12:18] VITALS: BP 120/70; PULSE 72; RESP 16; TEMP 37.2; O2SAT 100; BMI 26.0
--- NOTE | 2024-02-11 12:19 | ED.GENADULT ---
HPI - General Adult General Chief complaint: Abdominal Pain Stated complaint: Black stool, abd pain Time Seen by Provider: 02/11/24 14:49 Source: patient and deaf interpreter Mode of arrival: ambulatory Limitations: no limitations History of Present Illness HPI narrative: 33-year-old female came in for evaluation of abdominal pain and black stool, patient follow-up with loss prevention coordinator for chronic abdominal pain and gastritis. Patient stated that she has been taking Pepto-Bismol for the past couple days. Currently no nausea, no vomiting, had a black stool bowel movement earlier today. No use of NSAIDs or alcohol. No history of intra-abdominal surgery. Related Data Previous Rx's Medication Instructions Recorded ondansetron 4 mg disintegrating 4 mg PO Q8H PRN nausea and 01/30/22 tablet vomiting #10 tabs simethicone 180 mg capsule 180 mg PO TID 30 days #90 caps 10/27/22 wheat dextrin 3 gram/3.5 gram oral 1.5 g PO BID #60 ea 10/27/22 powder packet (Benefiber Clear Sugar Free(dextrin)) pantoprazole 40 mg tablet,delayed 40 mg PO BID 90 days #180 tabs 02/08/24 release (Protonix) Allergies Allergy/AdvReac Type Severity Reaction Status Date / Time No Known Allergies Allergy Verified 02/11/24 12:24 [No Known Allergies*] Review of Systems Review of Systems: All other systems are reviewed and are negative Constitutional: Reports as per HPI and Reports no additional constitutional complaints Eyes: Reports as per HPI and Reports no additional eye complaints Reports system reviewed and no additional complaints, except as documented Cardiovascular: Reports as per HPI and Reports no additional cardiovascular complaints Respiratory: Reports as per HPI and Reports no additional respiratory complaints Gastrointestinal: Reports as per HPI and Reports no additional gastrointestinal complaints Genitourinary: Reports no additional female genitourinary complaints Musculoskeletal: Reports no additional musculoskeletal complaints Skin/Breast: Reports system reviewed and no additional complaints, except as docu Psychiatric: Reports no additional psychiatric complaints Endocrine: Reports no additional endocrine complaints Hematologic/Lymphatic: Reports no additional hematologic/lymphatic complaints Allergic/Immunologic: Reports no additional allergic/immunologic complaints Reports system reviewed and no additional complaints, except as documented and Reports Abnormal speech present [facility] Past Medical History Medical History First trimester bleeding Surgical History History of esophagogastroduodenoscopy Family History Family History Father Stroke Mother Hypothyroidism Social History Social History Alcohol intake: current Alcohol intake frequency: does not drink Smoked in Last 30 Days: No Use of substances other than those prescribed or required for medical reasons: No Advance Directives: No Advance Directives Information Provided: No Patient : No Current occupational status: unemployed 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 Physical Exam ED Vital Signs: Vital Signs - 24 hr 02/11/24 12:18 02/11/24 13:41 02/11/24 15:46 Temperature 98.9 F 98.1 F 98.9 F Pulse Rate 72 85 92 Respiratory Rate 16 16 18 Blood Pressure 120/70 133/74 126/71 Pulse Oximetry 100 100 96 Oxygen Delivery Method Room Air Room Air Room Air BMI result Body Mass Index 26.0 Vital signs have been reviewed and appear to be correct. Blood pressure elevated. Heart rate normal. Respiratory rate normal. Temperature normal. Oxygen saturation normal. Appearance: Alert. Oriented X3. No acute distress. Head: Normal external exam. Normocephalic. Atraumatic. No [place]agan signs noted. No raccoon eyes noted Eyes: PERRLA. EOMI. Conjunctiva and sclera normal. Eyelids normal. ENT: TM's Normal. Pharynx normal. Uvula midline. Moist mucous membranes. No trismus noted. No drooling noted. No muffled voice noted. Neck: Normal inspection. Neck supple. FROM. No adenopathy. Thyroid Normal. No meningeal signs. No neck mass noted. CVS: Normal heart rate and rhythm. Heart sound normal. No murmurs noted. Pulses normal throughout. Respiratory: No respiratory distress. Painless inspiration. Breath sounds normal. No wheezes/rales/rhonchi noted. Chest nontender. No accessory muscle usage noted or decreased air movement noted. Abdomen: Soft, epigastric tenderness, no rebound tenderness, no guarding. Bowel sounds normal in all 4 quadrants. No distention noted. No organomegaly noted. No visible injury noted. Rectal exam: In the presence of female brick setter black stool guaiac negative. Back: No CVA tenderness. Full range of motion noted. Skin: Skin warm and dry. Normal skin color. Normal skin turgor. No rashes/lesions/lacerations noted. Extremities: No lower extremity edema. Extremities exhibit normal range of motion. Extremities nontender. Neuro: Oriented X 3. Cranial nerve exam: II-XII are grossly intact No motor deficit. No sensory deficit. Reflexes normal. Course Course Course Narrative: This is a rapid medical exam: Additional HPI, ROS, PE not included below will be deferred to primary provider. Patient is a 33-year-old female presenting to the emergency department with complaint of epigastric abdominal pain for one week, and dark black stool for the past 2 weeks. Also reports vomiting and diarrhea for one week, none in 3 days. Has been taking Pepto Bismol and pantoprazole. Plan: labs, UA Reevaluation(s) Reevaluation #1: Black stool which is negative for blood likely due to Pepto-Bismol, H&H is dropping from baseline, abdomen CT is pending case signed out to Dr. Burt Time: 16:17 Medications Administered Discontinued Medications Generic Name Dose Route Start Last Admin Trade Name Freq PRN Reason Stop Dose Admin Pantoprazole Sodium 40 mg 02/11/24 14:52 02/11/24 15:54 Pantoprazole Sodium 40 Mg/10 Ml Vial IVPUSH 02/11/24 14:53 40 mg ONCE ONE Administration Medical Decision Making Medical Decision Making [facility] Narrative: 16:40 Patient with IBS with diarrhea vomiting as in the past CT scan is negative guaiac test negative discharge patient home on supportive treatment advised to follow with GI Differential Diagnosis Differential Diagnoses: The differential diagnosis associated with the presentation includes (Gastritis, perforated viscus, peptic ulcer disease, severe anemia, electrolyte derangement, colitis, diverticulitis.) Admission/Observation Consideration of admission/observation: Escalation of care including admission/observation considered Lab Data [facility] Lab Attestation statement: I reviewed the patient's lab results. 02/11/24 12:40 02/11/24 12:40 Labs: Lab Results 02/11/24 02/11/24 02/11/24 Range/Units 12:40 12:43 13:39 WBC 6.8 (4.8-10.8) X10*3/uL RBC 3.89 L (4.20-5.50) X10*6/uL Hgb 10.5 L D (12.0-16.0) g/dl Hct 32.0 L D (37.0-47.0) % MCV 82.3 (80.0-98.0) fL MCH 27.0 (27.0-33.0) pg MCHC 32.8 (31.0-35.0) g/dl RDW 14.6 (11.0-16.0) % Plt Count 292 (160-400) X10*3/uL MPV 10.6 (9.4-12.3) fL Immature Gran % (Auto) 0.1 (0.0-0.4) % Neut % (Auto) 47.7 (45-73) % Lymph % (Auto) 43.1 H (20-40) % Divide % (Auto) 6.4 (2-11) % Eos % (Auto) 1.8 (0-4) % Baso % (Auto) 0.9 (0-2) % Lymph # (Auto) 2.9 (1.2-4.9) X10*3/uL Divide # (Auto) 0.4 (0.1-1.2) X10*3/uL Eos # (Auto) 0.1 (0.0-0.4) X10*3/uL Baso # (Auto) 0.1 (0.0-0.2) X10*3/uL Abs Immat Gran (auto) 0.01 (0.00-0.03) X10*3/uL Absolute Neuts (auto) 3.2 (2.0-8.3) x10*3/uL Absolute Nucleated RBC 0.000 (0.0-0.012) X10*3/uL Nucleated RBC % (auto) 0.0 (0.0-0.2) /100WBC PT 13.1 (11.1-13.3) SEC INR 1.1 (0.9-1.1) Sodium 139 (135-145) mmol/L Potassium 4.4 (3.3-5.1) mmol/L Chloride 108 (96-108) mmol/L Carbon Dioxide 24 (22-29) mmol/L Anion Gap 11 L (12-20) BUN 11 (9-16) mg/dL Creatinine 0.63 (0.5-1.4) mg/dL Estim Creat Clear Calc 132.3 Estimated GFR > 60 Random Glucose 90 (60-115) mg/dL Calcium 9.0 D (8.4-10.2) mg/dL Total Bilirubin 1.2 H (0.0-1.0) mg/dL AST 14 (5-31) U/L ALT 9 (0-31) U/L Alkaline Phosphatase 52 (39-117) U/L Total Protein 7.2 (6.5-8.0) g/dL Albumin 4.2 (3.5-5.0) g/dL Beta HCG, Quant < 2 mIU/mL Urine Color Yellow Urine Appearance Clear Urine pH 6.5 (5.0-9.0) Ur Specific [place] 1.015 (1.005-1.025) Urine Protein Negative (Neg-Trace) mg/dL Urine Glucose (UA) Negative (Negative) mg/dL Urine Ketones Negative (Negative) mg/dL Urine Blood Negative (Negative) Urine Nitrite Negative (Negative) Ur Leukocyte Esterase Trace H (Negative) Urine RBC 0-2 (0-2) /HPF Urine WBC 0-5 (0-5) /HPF Ur Squamous Epith Cells 3-5 (0-2) /HPF Urine Bacteria None Seen (None Seen) Hyaline Casts 0-2 (0-2) /LPF Urine Test NEGATIVE (NEGATIVE) Stool Occult Blood (NEGATIVE) Influenza Type A (PCR) NEGATIVE (Negative) Influenza Type B (PCR) NEGATIVE (Negative) RSV RNA Qual (PCR) NEGATIVE (Negative) SARS-CoV-2 RNA (RT-PCR) NEGATIVE (Negative) Blood Type A Positive Antibody Screen NEGATIVE 02/11/24 Range/Units 14:51 WBC (4.8-10.8) X10*3/uL RBC (4.20-5.50) X10*6/uL Hgb (12.0-16.0) g/dl Hct (37.0-47.0) % MCV (80.0-98.0) fL MCH (27.0-33.0) pg MCHC (31.0-35.0) g/dl RDW (11.0-16.0) % Plt Count (160-400) X10*3/uL MPV (9.4-12.3) fL Immature Gran % (Auto) (0.0-0.4) % Neut % (Auto) (45-73) % Lymph % (Auto) (20-40) % Divide % (Auto) (2-11) % Eos % (Auto) (0-4) % Baso % (Auto) (0-2) % Lymph # (Auto) (1.2-4.9) X10*3/uL Divide # (Auto) (0.1-1.2) X10*3/uL Eos # (Auto) (0.0-0.4) X10*3/uL Baso # (Auto) (0.0-0.2) X10*3/uL Abs Immat Gran (auto) (0.00-0.03) X10*3/uL Absolute Neuts (auto) (2.0-8.3) x10*3/uL Absolute Nucleated RBC (0.0-0.012) X10*3/uL Nucleated RBC % (auto) (0.0-0.2) /100WBC PT (11.1-13.3) SEC INR (0.9-1.1) Sodium (135-145) mmol/L Potassium (3.3-5.1) mmol/L Chloride (96-108) mmol/L Carbon Dioxide (22-29) mmol/L Anion Gap (12-20) BUN (9-16) mg/dL Creatinine (0.5-1.4) mg/dL Estim Creat Clear Calc Estimated GFR Random Glucose (60-115) mg/dL Calcium (8.4-10.2) mg/dL Total Bilirubin (0.0-1.0) mg/dL AST (5-31) U/L ALT (0-31) U/L Alkaline Phosphatase (39-117) U/L Total Protein (6.5-8.0) g/dL Albumin (3.5-5.0) g/dL Beta HCG, Quant mIU/mL Urine Color Urine Appearance Urine pH (5.0-9.0) Ur Specific [place] (1.005-1.025) Urine Protein (Neg-Trace) mg/dL Urine Glucose (UA) (Negative) mg/dL Urine Ketones (Negative) mg/dL Urine Blood (Negative) Urine Nitrite (Negative) Ur Leukocyte Esterase (Negative) Urine RBC (0-2) /HPF Urine WBC (0-5) /HPF Ur Squamous Epith Cells (0-2) /HPF Urine Bacteria (None Seen) Hyaline Casts (0-2) /LPF Urine Test (NEGATIVE) Stool Occult Blood NEGATIVE (NEGATIVE) Influenza Type A (PCR) (Negative) Influenza Type B (PCR) (Negative) RSV RNA Qual (PCR) (Negative) SARS-CoV-2 RNA (RT-PCR) (Negative) Blood Type Antibody Screen Independent Interpretation I performed an independent interpretation of an: CT Scan Radiology Impression Discussion of test interpretation with radiology: I have reviewed the radiologist's reading. Discharge Plan Discharge Clinical Impression: Black stool, Gastritis Patient Disposition: Still a Patient Prescriptions: No Action pantoprazole [Protonix] 40 mg tablet,delayed release (DR/EC) 40 mg PO BID 90 Days Qty: 180 2RF Rx Instructions: Stopping the omperazole and famotidine as she has failed these. ondansetron 4 mg tablet,disintegrating 4 mg PO Q8H PRN (Reason: nausea and vomiting) Qty: 10 0RF Benefiber Clear SF (dextrin) 3 gram/3.5 gram powder in packet 1.5 g PO BID Qty: 60 3RF Rx Instructions: mix into at least 4 oz water or juice before administering simethicone 180 mg capsule 180 mg PO TID 30 Days Qty: 90 3RF Rx Instructions: after meals
[2024-02-11 12:47] LABS: MANUAL DIFF FLAG NO
[2024-02-11 12:52] LABS: Basophils Absolute Auto 0.1 X10*3/uL (0.0-0.2); Basophils Percent Auto 0.9 % (0-2); Eosinophils Absolute Auto 0.1 X10*3/uL (0.0-0.4); Eosinophils Percent Auto 1.8 % (0-4); Hemoglobin 10.5 g/dl (12.0-16.0); Imm Gran Abs Auto 0.01 X10*3/uL (0.00-0.03); Imm Gran Pct Auto 0.1 % (0.0-0.4); Lymphocytes Absolute Auto 2.9 X10*3/uL (1.2-4.9); Lymphocytes Percent Auto 43.1 % (20-40); Mean Corpuscular HGB Conc 32.8 g/dl (31.0-35.0); Mean Corpuscular Volume 82.3 fL (80.0-98.0); Mean Platelet Volume 10.6 fL (9.4-12.3); Monocytes Absolute Auto 0.4 X10*3/uL (0.1-1.2); Monocytes Percent Auto 6.4 % (2-11); Neutrophils Absolute Auto 3.2 x10*3/uL (2.0-8.3); Neutrophils Percent Auto 47.7 % (45-73); Platelet Count 292 X10*3/uL (160-400); Red Blood Count 3.89 X10*6/uL (4.20-5.50); Red Cell Distribution Width 14.6 % (11.0-16.0); White Blood Count 6.8 X10*3/uL (4.8-10.8)
[2024-02-11 13:05] LABS: INTERNATIONAL NORM RATIO 1.1 (0.9-1.1); Prothrombin Time 13.1 SEC (11.1-13.3)
[2024-02-11 13:15] LABS: Alanine Aminotransferase 9 U/L (0-31); Albumin Level 4.2 g/dL (3.5-5.0); Alkaline Phosphatase 52 U/L (39-117); Anion Gap 11 (12-20); Aspartate Amino Transferase 14 U/L (5-31); Bilirubin Total 1.2 mg/dL (0.0-1.0); Blood Urea Nitrogen 11 mg/dL (9-16); Carbon Dioxide 24 mmol/L (22-29); Chloride 108 mmol/L (96-108); Creatinine Clr Calc Pharmacy 132.3; Estimated Glomerular Filt Rate > 60; Glucose Random 90 mg/dL (60-115); HCG Quantitative < 2 mIU/mL; Potassium 4.4 mmol/L (3.3-5.1); Sodium 139 mmol/L (135-145); Total Protein 7.2 g/dL (6.5-8.0)
[2024-02-11 13:29] LABS: Influenza A PCR NEGATIVE (Negative); Influenza B PCR NEGATIVE (Negative); Resp Syncy Virus RNA Qual PCR NEGATIVE (Negative); SARS COV2 PCR INHOUSE NEGATIVE (Negative)
[2024-02-11 13:41] VITALS: BP 133/74; PULSE 85; RESP 16; TEMP 36.7; O2SAT 100
[2024-02-11 13:50] LABS: Appearance Urine Clear; Color Urine Yellow; Glucose Urine UA Negative (Negative); Leukocyte Esterase Urine Trace (Negative); Nitrite Urine Negative (Negative); PH 6.5 (5.0-9.0); Specific Gravity - Urine 1.015 (1.005-1.025); UMIC TRIGGER UACC YES; Urine Blood Negative (Negative); Urine Ketones Negative (Negative); Urine Protein Negative (Neg-Trace)
[2024-02-11 13:55] LABS: Bacteria Urine None Seen (None Seen); Hyaline Casts Urine 0-2 /LPF (0-2); RBC Urine 0-2 /HPF (0-2); WBC Urine 0-5 /HPF (0-5)
[2024-02-11 15:04] LABS: OBS Int Ctl Valid YES; OBS1 NEGATIVE (NEGATIVE)
[2024-02-11 15:43] LABS: UPreg QC Valid YES; Urine Pregnancy NEGATIVE (NEGATIVE)
--- NOTE | 2024-02-11 15:43 | PC.NURSE ---
attempted piv access x2, no success. primary rn lizbeth tim.
[2024-02-11 15:46] VITALS: BP 126/71; PULSE 92; RESP 18; TEMP 37.2; O2SAT 96
[2024-02-11] MEDS: Pantoprazole Sodium 40 MG/10 ML VIAL IVPUSH (15:54)
--- NOTE | 2024-02-11 15:56 | PC.NURSE ---
delay in medication administration d/t pt being difficult stick. 22gIV placed in the right hand. medication administered per provider order. effectiveness pending. pt waiting on CT results at this time. no sob/wob noted. respirations even and unlabored. plan of care ongoing. call interiano placed within reach.
[2024-02-11 17:27] VITALS: BP 126/71; PULSE 92; RESP 18; TEMP 37.2; O2SAT 96
--- NOTE | 2024-03-09 11:39 | PC.NURSE ---
THIS NURSE IS IN THIS ACCOUNT BY REQUEST OF CLINICAL COORDINATOR AMRIK TO PERFORM CHART AUDIT REVIEW
== END 2024-02-11 17:27 | disposition home or self-care (01) ==
PROVIDERS: Registered Nurse Emergency; Emergency Provider Emergency Medicine
DX: K92.1 Melena (principal); K29.70 Gastritis, unspecified, without bleeding; R10.9 Unspecified abdominal pain; R10.13 Epigastric pain; K58.0 Irritable bowel syndrome with diarrhea; Z11.52 Encounter for screening for COVID-19; Z20.828 Contact with and (suspected) exposure to other viral communicable diseases
CPT/HCPCS: 0241U; 36415; 74176; 80053; 81001; 81025; 82272; 84702; 85025; 85610; 86850; 86900; 86901; 96374; 99284; C9113

== ENCOUNTER 2024-03-21 15:52 | Outpatient (AMB) | payer OTHER, SELFPAY ==
--- NOTE | 2024-03-16 08:16 | MHC.OFFVIS ---
Intake Visit Reasons: ER follow up/abd pain Allergies No Known Allergies [No Known Allergies*] Allergy (Verified 02/11/24 12:24) HPI HPI ER follow up/abd pain: Details: Laboratory Tests 01/30/22 02/11/24 08:43 12:40 WBC 7.3 6.8 RBC 4.69 3.89 L Hgb 14.4 10.5 L D Hct 43.3 32.0 L D MCV 82.3 MCH 27.0 Plt Count 292 Estimated GFR > 60 Total Bilirubin 1.2 H AST 14 ALT 9 Alkaline Phosphatase 52 PFSH Medical History First trimester bleeding Surgical History History of esophagogastroduodenoscopy Family History Father Stroke Mother Hypothyroidism Social History Alcohol intake: current Alcohol intake frequency: does not drink Current occupational status: unemployed 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
--- NOTE | 2024-03-21 15:52 | A.OFFVIS_ITS ---
Vital Signs 03/21/24 15:55 Height 5 ft 6 in Weight 161 lb 13.109 oz BMI 26.1 BP 130/70 Blood Pressure Location Rt brachial Position Sitting Pulse 75 Intake Visit Reasons: ER follow up/abd pain Intake Note: Margarita presents to in office visit today in follow up after ED visit on CC: Patient seen in the ED on 02/11/24 WITH c/o abdominal pain and black stool for a month. She reports constipation and sometimes a little bit of blood when wiping. She was told in the ED that she has IBS. [employer] Specialist Required: Yes Allergies No Known Allergies [No Known Allergies*] Allergy (Verified 03/21/24 16:04) HPI HPI ER follow up/abd pain: Details: Assessment & Plan (1) GERD (gastroesophageal reflux disease): ?Code(s): K21.9 - Gastro-esophageal reflux disease without esophagitis ?Plan: Urdu #live Y Patient is been lost to follow-up since 02/2021. She became and had a baby boy! Recently she been having a lot of pain in the epigastric area and GERD. This has been for 2 months. She has not had the medication for several months. She is interested in an EGD, but first I think we should restart her medications as evaluate her response. She had one in the DR that she understands found mild chronic gastritis in 2016. I amm sending protonix 40ng bid and simethicone. She is doing well on her fiber for her IBS. . ROV 4 weeks (2) Irritable bowel syndrome with both constipation and diarrhea: ?Code(s): K58.2 - Mixed irritable bowel syndrome (3) Abdominal bloating: ?Code(s): R14.0 - Abdominal distension (gaseous) ? ? ? Medications: New wheat dextrin (Benefiber Clear Sugar Free(dextrin)) ?? mix into at least 4 oz water or juice before administering 1.5 grams? PO BID 60 ea 3RF ? ? Refilled pantoprazole (Protonix) ?? Stopping the omperazole and famotidine as she has failed these. 40 mg? PO BID 30 days 60 tabs 2RF K21.9 - Gastro-esophageal reflux disease without esophagitis ? simethicone ?? after meals 180 mg? PO TID 30 days 90 caps 3RF R14.0 - Abdominal distension (gaseous) ? Discontinued dicyclomine ?? Discontinued Reason:? Doctor's Order ?1-2 caps po qid? PO 4 times a day PRN;? 180 caps 3RF bloating and cramp K58.2 - Mixed irritable bowel syndrome ? review of ER notes 02/11/2024-note does not appear to be completed so it is uncertain what treatment was offered to the patient Course Course Narrative: This is a rapid medical exam: Additional HPI, ROS, PE not included below will be deferred to primary provider. Patient is a 33-year-old female presenting to the emergency department with complaint of epigastric abdominal pain for one week, and dark black stool for the past 2 weeks. Also reports vomiting and diarrhea for one week, none in 3 days. Has been taking Pepto Bismol and pantoprazole. Plan: labs, UA Reevaluation(s) Reevaluation #1: Black stool which is negative for blood likely due to Pepto-Bismol, H&H is dropping from baseline, abdomen CT is pending case signed out to Dr. Burt CT abdomen and pelvis 02/11/24 FINDINGS: LUNG BASES: Unremarkable. ABDOMINAL AND PELVIC WALL: Unremarkable. LIVER AND BILIARY TREE: Calcified right hepatic lobe granuloma. GALLBLADDER: Unremarkable. PANCREAS: Unremarkable. SPLEEN: Unremarkable. ADRENAL GLANDS: Unremarkable. KIDNEYS AND URETERS: Unremarkable. GASTROINTESTINAL TRACT: Large volume of desiccated stool in the colon. Colonic diverticulosis without evidence of diverticulitis. Normal appendix. Lack of intravenous contrast limits assessment for GI bleeding. VASCULAR: Unremarkable. LYMPH NODES/PERITONEUM: No lymphadenopathy. FREE FLUID: None. BLADDER: Unremarkable. PELVIC VISCERA: Retroflexed uterus. Intrauterine device in place. OSSEOUS STRUCTURES: Unremarkable. CT/CT abdomen pelvis wo IV con IMPRESSION: 1. Colonic diverticulosis without evidence of diverticulitis. Lack of intravenous contrast large volume of desiccated stool within the colon limits assessment for GI bleeding. Laboratory Tests 01/30/22 02/11/24 08:43 12:40 WBC 7.3 6.8 RBC 4.69 3.89 L Hgb 14.4 10.5 L D Hct 43.3 32.0 L D MCV 82.3 MCH 27.0 Plt Count 292 Estimated GFR > 60 Total Bilirubin 1.2 H AST 14 ALT 9 Alkaline Phosphatase 52 TODAY'S VISIT Urdu #Shane. THIS PATIENT HAS BEEN LOST TO FOLLOW-UP SINCE 10/27/2022. She says she has had her hands full taking care of her daughter who has the same condition. A year ago she started having dark diarrhea, even when the diarrhea stopped her stools was still very dark. Her stools were normal for a while, the stool because that dark color again. She also developed N/V and lost 10 lbs and started feeling weak. She feels better if she avoids red meats, pork and fried foods. She thinks that fried pork may have set off her sx. She had associated pain that seemed to start in the midline just above the umbilcus but then spread to isaiah flanks and all over the abdomen. She admits she was drinking Pepto Bismol, which may be the reason for the black stools. She presented to the [facility], and a rectal exam seemed to exclude that the black stools was blood. They told her she had IBS and told her to get a colonoscopy and EGD. She has a hx of CIC alt with diarrhea. Now she is more CIC. Her mother had esophageal cancer and gastritis and colitis. She does not know what type of colitis. She occasionally sees small amts of blood on the TT. THERE ARE NO PRIOR PROBLEMS WITH ANESTHESIA OR SEDATION. She has asthma that is controlled, AND SHE DENIES CARDIAC PROBLEMS. No ID problems. There is no known FHX of crc but her mother had colon polyps. 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 Review of Systems Const Denies fatigue, Denies fever(s), Denies night sweats, Denies poor appetite and Reports weight loss ENT Reports Normal hearing present, Denies dental pain, Denies dysphagia, Denies hearing loss, Denies mouth pain, Denies odynophagia, Denies throat swelling, Denies tongue swelling and Reports other (Dentition adequate) Card Reports no additional complaints Resp Reports no additional complaints GI Details: Reports abdominal pain, Denies melena, Denies bloating, Denies hematochezia, Reports constipation, Denies GI cramping, Denies dysphagia, Denies excessive flatus, Denies early satiety, Reports heartburn, Reports diarrhea, Reports nausea, Denies odynophagia, Reports vomiting and Denies hematemesis Skin/Breast Denies pruritus, Denies lesions, Denies rash and Denies jaundice Neuro Reports Normal hearing present and Denies Abnormal speech present Endo Denies fatigue Aller/Immun Denies throat swelling and Denies tongue swelling Physical Exam Vital Signs: Last Vital Signs Pulse 75 03/21/24 15:55 BP 130/70 03/21/24 15:55 BMI result Body Mass Index 26.1 Const General: cooperative, no acute distress, well developed and well groomed Nutritional Appearance: average body habitus and well nourished Orientation/consciousness: oriented to person, oriented to place and oriented to time Limitations: language barrier HEENT Head: Yes normocephalic and Yes atraumatic Eyes General: appearance normal, both eyes and all related structures Pupils: Equal, round and reactive pupils present Neck Neck: Yes normal visual inspection and Yes no lymphadenopathy Thyroid: Thyroid normal Resp Effort & Inspection: normal respiratory effort and able to speak in complete sentences Auscultation: clear to auscultation bilaterally Cardio Rate: regular rate Rhythm: regular rhythm Heart sounds: Normal, physiologic split S2 sound present Peripheral pulses: radial pulses present and posterior tibial pulses present GI Inspection: No distended and No Abdominal panniculus present Palpation (GI): Soft to palpation, nontender, no guarding, not rigid and No hepatosplenomegaly present Percussion: Yes normal to percussion Auscultation: normal bowel sounds Rectal Exam - Female: deferred Skin General skin exam: no rashes or lesions noted, turgor normal, skin not dry, no jaundice, No spider nevi and no striae Rashes: no rashes Nails: normal Neuro General: oriented to person, oriented to place and oriented to time Cranial nerves: Yes Equal, round and reactive pupils present and Yes Normal hearing present Speech: No Abnormal speech present Extrem General: Yes normal to inspection, No clubbing, No cyanosis and No edema Psych Appearance: grossly normal and well kempt Mental Status: mental status grossly normal Speech and movement: Normal speech and movement present Affect: normal affect Attitude: cooperative Thought process: Normal thought process present and not confabulating Thought content: Normal thought content present Insight: Limited insight present (Psych) Judgement: Limited judgement present (Psych) Results Reviewed Results Reviewed: CT abdomen and pelvis 02/11/24 FINDINGS: LUNG BASES: Unremarkable. ABDOMINAL AND PELVIC WALL: Unremarkable. LIVER AND BILIARY TREE: Calcified right hepatic lobe granuloma. GALLBLADDER: Unremarkable. PANCREAS: Unremarkable. SPLEEN: Unremarkable. ADRENAL GLANDS: Unremarkable. KIDNEYS AND URETERS: Unremarkable. GASTROINTESTINAL TRACT: Large volume of desiccated stool in the colon. Colonic diverticulosis without evidence of diverticulitis. Normal appendix. Lack of intravenous contrast limits assessment for GI bleeding. VASCULAR: Unremarkable. LYMPH NODES/PERITONEUM: No lymphadenopathy. FREE FLUID: None. BLADDER: Unremarkable. PELVIC VISCERA: Retroflexed uterus. Intrauterine device in place. OSSEOUS STRUCTURES: Unremarkable. CT/CT abdomen pelvis wo IV con IMPRESSION: 1. Colonic diverticulosis without evidence of diverticulitis. Lack of intravenous contrast large volume of desiccated stool within the colon limits assessment for GI bleeding. Laboratory Tests 01/30/22 02/11/24 08:43 12:40 WBC 7.3 6.8 RBC 4.69 3.89 L Hgb 14.4 10.5 L D Hct 43.3 32.0 L D MCV 82.3 MCH 27.0 Plt Count 292 Estimated GFR > 60 Total Bilirubin 1.2 H AST 14 ALT 9 Alkaline Phosphatase 52 Assessment & Plan Assessment & Plan (1) Epigastric pain: Code(s): R10.13 - Epigastric pain Category: Medical (2) Diarrhea: Code(s): R19.7 - Diarrhea, unspecified Category: Medical (3) Nausea and vomiting: Code(s): R11.2 - Nausea with vomiting, unspecified Category: Medical (4) Melena: Code(s): K92.1 - Melena Category: Medical (5) Pre-op examination: Code(s): Z01.818 - Encounter for other preprocedural examination Category: Medical Plan A year ago she started having dark diarrhea, even when the diarrhea stopped her stools was still very dark. Her stools were normal for a while, the stool because that dark color again. She also developed N/V and lost 10 lbs and started feeling weak. She feels better if she avoids red meats, pork and fried foods. She thinks that fried pork may have set off her sx. She had associated pain that seemed to start in the midline just above the umbilcus but then spread to isaiah flanks and all over the abdomen. She admits she was drinking Pepto Bismol, which may be the reason for the black stools. She presented to the [facility] ER, and a rectal exam seemed to exclude that the black stools was blood. They told her she had IBS and told her to get a colonoscopy and EGD. She has a hx of CIC alt with diarrhea. Now she is more CIC. Her mother had esophageal cancer and gastritis and colitis. She does not know what type of colitis. She occasionally sees small amts of blood on the TT. THERE ARE NO PRIOR PROBLEMS WITH ANESTHESIA OR SEDATION. She has asthma that is controlled, AND SHE DENIES CARDIAC PROBLEMS. No ID problems. There is no known FHX of crc but her mother had colon polyps. I THINK WE SHOULD ALSO GET SOME FOOD allergy testing and a CRP to be more complete as I explained to her that colonoscopy is not usually very good diagnose in irritable bowel syndrome. Return office visit in 4 weeks, her daughter is 4 years old (I remember when she was just !) She will be going for a visit in the [facility] soon. Orders: Orders EGD/[place] Combo - GI Use Only Today R10.13 - Epigastric pain, R11.2 - Nausea with vomiting, unspecified, R19.7 - Diarrhea, unspecified Rast Allergen Today R10.13 - Epigastric pain, R19.7 - Diarrhea, unspecified Transglutaminase IgA Today R10.13 - Epigastric pain, R19.7 - Diarrhea, unspecified Transglutaminase Ab IgG Today R10.13 - Epigastric pain, R19.7 - Diarrhea, unspecified C Reactive Protein Today R10.13 - Epigastric pain, R19.7 - Diarrhea, unspecified Medications: New bisacodyl (Dulcolax (bisacodyl)) 10 mg (2 x 5 mg) PO BEDTIME 4 tabs 0RF 2 days peg 3350-electrolytes [id number] -5.86 gram (Golytely) until fecal effluent is clear; do not exceed a total volume of 2,000 mL 240 mL PO Q10M 4,000 mL 0RF 1 day Z12.11 - Encounter for screening for malignant neoplasm of colon Coding Level of Care Code Est Pt Level 4 (17256) Diagnoses Epigastric pain R10.13 Diarrhea R19.7 Nausea and vomiting R11.2 Melena K92.1 Pre-op examination Z01.818
[2024-03-21 15:55] VITALS: BP 130/70; PULSE 75; BMI 26.1
== END 2024-03-21 16:46 | disposition home or self-care (01) ==
PROVIDERS: Visit Provider Nurse Practitioner
DX: R10.13 Epigastric pain (principal); R19.7 Diarrhea, unspecified; R11.2 Nausea with vomiting, unspecified; K92.1 Melena; Z01.818 Encounter for other preprocedural examination
CPT/HCPCS: 99214

== ENCOUNTER → 2024-03-21 15:52 | Outpatient (BNVA) | payer OTHER, SELFPAY | PROVIDERS: Visit Provider Nurse Practitioner | DX: Z01.818 Encounter for other preprocedural examination (principal); K92.1 Melena; R10.13 Epigastric pain; R19.7 Diarrhea, unspecified; R11.2 Nausea with vomiting, unspecified | CPT/HCPCS: 99212 ==

== ENCOUNTER 2024-03-23 08:35 | Outpatient (REF) | payer OTHER, SELFPAY ==
[2024-03-23 10:14] LABS: C Reactive Protein < 0.10 mg/dL (< or = 0.50)
[2024-03-27 22:04] LABS: Transglutaminase Ab IgG <1.0 U/mL; Transglutaminase IgA <1.0 U/mL
== END 2024-03-23 08:36 | disposition home or self-care (01) ==
LOC: HO.LAB 08:35
PROVIDERS: Visit Provider Nurse Practitioner
DX: R10.13 Epigastric pain (principal); R19.7 Diarrhea, unspecified
CPT/HCPCS: 36415; 86003; 86140; 86364

== ENCOUNTER 2024-04-18 15:41 | Outpatient (AMB) | payer OTHER, SELFPAY ==
--- NOTE | 2024-04-18 15:42 | A.OFFVIS_ITS ---
Vital Signs 04/18/24 15:44 Height 5 ft 6 in Weight 164 lb 7.437 oz BMI 26.5 BP 128/69 Blood Pressure Location Rt brachial Position Sitting Pulse 76 Intake Visit Reasons: 4 weeks follow up Intake Note: Patient returns to in office visit today in follow up of labs. CC: Patient reports that she is doing better. Denies any new GI concerns today. 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 Accompanied by: Self / Same As Patient Allergies No Known Allergies [No Known Allergies*] Allergy (Verified 03/21/24 16:04) HPI HPI 4 weeks follow up: Details: Assessment & Plan (1) Epigastric pain: Code(s): R10.13 - Epigastric pain Category: Medical (2) Diarrhea: Code(s): R19.7 - Diarrhea, unspecified Category: Medical (3) Nausea and vomiting: Code(s): R11.2 - Nausea with vomiting, unspecified Category: Medical (4) Melena: Code(s): K92.1 - Melena Category: Medical (5) Pre-op examination: Code(s): Z01.818 - Encounter for other preprocedural examination Category: Medical Plan A year ago she started having dark diarrhea, even when the diarrhea stopped her stools was still very dark. Her stools were normal for a while, the stool because that dark color again. She also developed N/V and lost 10 lbs and started feeling weak. She feels better if she avoids red meats, pork and fried foods. She thinks that fried pork may have set off her sx. She had associated pain that seemed to start in the midline just above the umbilcus but then spread to isaiah flanks and all over the abdomen. She admits she was drinking Pepto Bismol, which may be the reason for the black stools. She presented to the [facility], and a rectal exam seemed to exclude that the black stools was blood. They told her she had IBS and told her to get a colonoscopy and EGD. She has a hx of CIC alt with diarrhea. Now she is more CIC. Her mother had esophageal cancer and gastritis and colitis. She does not know what type of colitis. She occasionally sees small amts of blood on the TT. THERE ARE NO PRIOR PROBLEMS WITH ANESTHESIA OR SEDATION. She has asthma that is controlled, AND SHE DENIES CARDIAC PROBLEMS. No ID problems. There is no known FHX of crc but her mother had colon polyps. I THINK WE SHOULD ALSO GET SOME FOOD allergy testing and a CRP to be more complete as I explained to her that colonoscopy is not usually very good diagnose in irritable bowel syndrome. Return office visit in 4 weeks, her daughter is 4 years old (I remember when she was just !) She will be going for a visit in the [facility] [place] soon. Orders: Orders EGD/[place] Combo - GI Use Only Today R10.13 - Epigastric pain, R11.2 - Nausea with vomiting, unspecified, R19.7 - Diarrhea, unspecified Rast Allergen Today R10.13 - Epigastric pain, R19.7 - Diarrhea, unspecified Transglutaminase IgA Today R10.13 - Epigastric pain, R19.7 - Diarrhea, unspecified Transglutaminase Ab IgG Today R10.13 - Epigastric pain, R19.7 - Diarrhea, unspecified C Reactive Protein Today R10.13 - Epigastric pain, R19.7 - Diarrhea, unspeci fied Medications: New bisacodyl (Dulcolax (bisacodyl)) 10 mg (2 x 5 mg) PO BEDTIME 4 tabs 0RF 2 days peg 3350-electrolytes 236-22.74-6.74 -5.86 gram (Golytely) until fecal effluent is clear; do not exceed a total volume of 2,000 mL 240 mL PO Q10M 4,000 mL 0RF 1 day Z12.11 - Encounter for screening for malignant neoplasm of colon LABS: Laboratory Tests 03/23/24 09:04 C-Reactive Protein < 0.10 Tiss Transglutamin IgG <1.0 Tiss Transglutamin IgA <1.0 RAST PANEL SHOWS NO SIGNIFICANT FOOD ALLERGIES EGD/COLONOSCOPY The EGD is scheduled for May but the colonoscopy for June (???) BIOPSY TODAY'S VISIT Tongan #Alan Brian Her symptoms have completely resolved which leads me to believe it was a virus. Again the black stool is from Pepto-Bismol her diarrhea and abdominal pain likely again with the sequelae of an infection. She continues on her pantoprazole 40 mg twice a day with good control of her GERD. She is feeling well and soon will be going to the [facility] to visit her family who she has not seen in many years! She has an appointment already set up for me in June and she will keep that as her next follow-up. 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 Review of Systems Const Denies fatigue, Denies fever(s), Denies night sweats, Denies poor appetite and Denies weight loss ENT Reports Normal hearing present, Denies dental pain, Denies dysphagia, Denies hearing loss, Denies mouth pain, Denies odynophagia, Denies throat swelling, Denies tongue swelling and Reports other (Dentition adequate) Card Reports no additional complaints Resp Reports no additional complaints GI Details: Denies abdominal pain, Denies melena, Denies bloating, Denies hematochezia, Denies constipation, Denies GI cramping, Denies dysphagia, Denies excessive flatus, Denies early satiety, Reports heartburn, Denies diarrhea, Denies nausea, Denies odynophagia, Denies vomiting and Denies hematemesis Skin/Breast Denies pruritus, Denies lesions, Denies rash and Denies jaundice Neuro Reports Normal hearing present and Denies Abnormal speech present Endo Denies fatigue Aller/Immun Denies throat swelling and Denies tongue swelling Physical Exam Vital Signs: Last Vital Signs Pulse 76 04/18/24 15:44 BP 128/69 04/18/24 15:44 BMI result Body Mass Index 26.5 Const General: cooperative, no acute distress, well developed and well groomed Nutritional Appearance: average body habitus and well nourished Orientation/consciousness: oriented to person, oriented to place and oriented to time Limitations: language barrier HEENT Head: Yes normocephalic and Yes atraumatic Eyes General: appearance normal, both eyes and all related structures Pupils: Equal, round and reactive pupils present Neck Neck: Yes normal visual inspection and Yes no lymphadenopathy Thyroid: Thyroid normal Resp Effort & Inspection: normal respiratory effort and able to speak in complete sentences Auscultation: clear to auscultation bilaterally Cardio Rate: regular rate Rhythm: regular rhythm Heart sounds: Normal, physiologic split S2 sound present Peripheral pulses: radial pulses present and posterior tibial pulses present GI Inspection: No distended and No Abdominal panniculus present Palpation (GI): Soft to palpation, nontender, no guarding, not rigid and No hepatosplenomegaly present Percussion: Yes normal to percussion Auscultation: normal bowel sounds Rectal Exam - Female: deferred Skin General skin exam: no rashes or lesions noted, turgor normal, skin not dry, no jaundice, No spider nevi and no striae Rashes: no rashes Nails: normal Neuro General: oriented to person, oriented to place and oriented to time Cranial nerves: Yes Equal, round and reactive pupils present and Yes Normal hearing present Speech: No Abnormal speech present Extrem General: Yes normal to inspection, No clubbing, No cyanosis and No edema Psych Appearance: grossly normal and well kempt Mental Status: mental status grossly normal Speech and movement: Normal speech and movement present Affect: normal affect Attitude: cooperative Thought process: Normal thought process present and not confabulating Thought content: Normal thought content present Insight: Limited insight present (Psych) Judgement: Limited judgement present (Psych) Assessment & Plan Assessment & Plan (1) GERD (gastroesophageal reflux disease): Code(s): K21.9 - Gastro-esophageal reflux disease without esophagitis Category: Medical (2) Irritable bowel syndrome with both constipation and diarrhea: Code(s): K58.2 - Mixed irritable bowel syndrome Category: Medical (3) Nausea and vomiting: Code(s): R11.2 - Nausea with vomiting, unspecified Category: Medical (4) Diarrhea: Code(s): R19.7 - Diarrhea, unspecified Category: Medical Plan Tongan #Alan Brian Her symptoms have completely resolved which leads me to believe it was a virus. Again the black stool is from Pepto-Bismol her diarrhea and abdominal pain likely again with the sequelae of an infection. She continues on her pantoprazole 40 mg twice a day with good control of her GERD. She is feeling well and soon will be going to the [facility] to visit her family who she has not seen in many years! She has an appointment already set up for me in June and she will keep that as her next follow-up. Medications: Changed From wheat dextrin (Benefiber Clear Sugar Free(dextrin)) mix into at least 4 oz water or juice before administering 1.5 grams PO BID 60 ea 3RF To wheat dextrin (Benefiber Clear Sugar Free(dextrin)) mix into at least 4 oz water or juice before administering 1.5 grams PO BID 180 ea 3RF 90 days Refilled pantoprazole (Protonix) Stopping the omperazole and famotidine as she has failed these. 40 mg PO BID 180 tabs 2RF 90 days K21.9 - Gastro-esophageal reflux disease without esophagitis Coding Level of Care Code Est Pt Level 3 (00998) Diagnoses GERD (gastroesophageal reflux disease) K21.9 Irritable bowel syndrome with both constipation and diarrhea K58.2 Nausea and vomiting R11.2 Diarrhea R19.7
[2024-04-18 15:44] VITALS: BP 128/69; PULSE 76; BMI 26.5
== END 2024-04-18 16:06 | disposition home or self-care (01) ==
LOC: HO.HGI 15:41
PROVIDERS: Visit Provider Nurse Practitioner
DX: K21.9 Gastro-esophageal reflux disease without esophagitis (principal); K58.2 Mixed irritable bowel syndrome; R11.2 Nausea with vomiting, unspecified; R19.7 Diarrhea, unspecified
CPT/HCPCS: 99213

== ENCOUNTER → 2024-04-18 15:41 | Outpatient (BNVA) | payer OTHER, SELFPAY | PROVIDERS: Visit Provider Nurse Practitioner | DX: K21.9 Gastro-esophageal reflux disease without esophagitis (principal); K58.2 Mixed irritable bowel syndrome; R11.2 Nausea with vomiting, unspecified; R19.7 Diarrhea, unspecified | CPT/HCPCS: 99212 ==

== ENCOUNTER 2024-07-10 13:08 | Outpatient (AMB) | payer OTHER, SELFPAY ==
[2024-07-10 13:10] VITALS: BP 110/72; PULSE 68; BMI 26.3
--- NOTE | 2024-07-10 13:10 | A.OFFVIS_ITS ---
Vital Signs 07/10/24 13:10 Height 5 ft 6 in Weight 163 lb 2.273 oz BMI 26.3 BP 110/72 Blood Pressure Location Lt brachial Position Sitting Pulse 68 Intake Visit Reasons: Follow up GERD Intake Note: Ganesh presents to in office follow up of GERD. CC: Patient reports doing better from GERD and having regular BMs. Manager Winter Required: Yes Accompanied by: Self / Same As Patient Allergies No Known Allergies [No Known Allergies*] Allergy (Verified 03/21/24 16:04) HPI HPI Follow up GERD: Details: Assessment & Plan (1) GERD (gastroesophageal reflux disease): Code(s): K21.9 - Gastro-esophageal reflux disease without esophagitis Category: Medical (2) Irritable bowel syndrome with both constipation and diarrhea: Code(s): K58.2 - Mixed irritable bowel syndrome Category: Medical (3) Nausea and vomiting: Code(s): R11.2 - Nausea with vomiting, unspecified Category: Medical (4) Diarrhea: Code(s): R19.7 - Diarrhea, unspecified Category: Medical Plan Monegasque #Alan Live Her symptoms have completely resolved which leads me to believe it was a virus. Again the black stool is from Pepto-Bismol her diarrhea and abdominal pain likely again with the sequelae of an infection. She continues on her pantoprazole 40 mg twice a day with good control of her GERD. She is feeling well and soon will be going to the [facility] [place] to visit her family who she has not seen in many years! She has an appointment already set up for me in June and she will keep that as her next follow-up. Medications: Changed From wheat dextrin (Benefiber Clear Sugar Free(dextrin)) mix into at least 4 oz water or juice before administering 1.5 grams PO BID 60 ea 3RF To wheat dextrin (Benefiber Clear Sugar Free(dextrin)) mix into at least 4 oz water or juice before administering 1.5 grams PO BID 180 ea 3RF 90 days Refilled pantoprazole (Protonix) Stopping the omperazole and famotidine as she has failed these. 40 mg PO BID 180 tabs 2RF 90 days K21.9 - Gastro-esophageal reflux disease without e sophagitis EGD/COLONOSCOPY BIOPSY TODAY'S VISIT Monegasque #Ovidio Live Her GI regimen last consistent pantoprazole and fiber. She says she is feeling quite well with this regimen. She was treated for a bacteria when she was in the [place] and this caused her improvement. She is aware of the upcoming EGD/colonoscopy 07/10 and she wishes to proceed with this. BUT IN THE END SHE DID NOT HAVE THE APPT FOR SCOPE THAT SHE THOUGHT SHE HAD.....there was a great deal of confusion and I clarified this myself with the schedulers as I don't want her to show up to the OR prepped for nothing. I will send a work load and have her rebooked. Her mother had esophageal cancer and gastritis and colitis. She does not know what type of colitis. She occasionally sees small amts of blood on the TT. There are no prior problems with anesthesia or sedation She has asthma that is controlled, and she denies cardiac problems. No ID problems. There is no known FHX of crc but her mother had colon polyps. ROV 6 mos. 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 Review of Systems Const Denies fatigue, Denies fever(s), Denies night sweats, Denies poor appetite and Denies weight loss ENT Reports Normal hearing present, Denies dental pain, Denies dysphagia, Denies hearing loss, Denies mouth pain, Denies odynophagia, Denies throat swelling, Denies tongue swelling and Reports other (Dentition adequate) Card Reports no additional complaints Resp Reports no additional complaints GI Details: Denies abdominal pain, Denies melena, Denies bloating, Denies hematochezia, Reports constipation, Denies GI cramping, Denies dysphagia, Denies excessive flatus, Denies early satiety, Reports heartburn, Denies diarrhea, Reports nausea, Denies odynophagia, Denies vomiting and Denies hematemesis Skin/Breast Denies pruritus, Denies lesions, Denies rash and Denies jaundice Neuro Reports Normal hearing present and Denies Abnormal speech present Endo Denies fatigue Aller/Immun Denies throat swelling and Denies tongue swelling Physical Exam Vital Signs: Last Vital Signs Pulse 68 07/10/24 13:10 BP 110/72 07/10/24 13:10 BMI result Body Mass Index 26.3 Const General: cooperative, no acute distress, well developed and well groomed Nutritional Appearance: average body habitus and well nourished Orientation/consciousness: oriented to person, oriented to place and oriented to time Limitations: language barrier HEENT Head: Yes normocephalic and Yes atraumatic Eyes General: appearance normal, both eyes and all related structures Pupils: Equal, round and reactive pupils present Neck Neck: Yes normal visual inspection and Yes no lymphadenopathy Thyroid: Thyroid normal Resp Effort & Inspection: normal respiratory effort and able to speak in complete sentences Auscultation: clear to auscultation bilaterally Cardio Rate: regular rate Rhythm: regular rhythm Heart sounds: Normal, physiologic split S2 sound present Peripheral pulses: radial pulses present and posterior tibial pulses present GI Inspection: No distended and No Abdominal panniculus present Palpation (GI): Soft to palpation, nontender, no guarding, not rigid and No hepatosplenomegaly present Percussion: Yes normal to percussion Auscultation: normal bowel sounds Rectal Exam - Female: deferred Skin General skin exam: no rashes or lesions noted, turgor normal, skin not dry, no jaundice, No spider nevi and no striae Rashes: no rashes Nails: normal Neuro General: oriented to person, oriented to place and oriented to time Cranial nerves: Yes Equal, round and reactive pupils present and Yes Normal hearing present Speech: No Abnormal speech present Extrem General: Yes normal to inspection, No clubbing, No cyanosis and No edema Psych Appearance: grossly normal and well kempt Mental Status: mental status grossly normal Speech and movement: Normal speech and movement present Affect: normal affect Attitude: cooperative Thought process: Normal thought process present and not confabulating Thought content: Normal thought content present Insight: Limited insight present (Psych) Judgement: Limited judgement present (Psych) Results Reviewed Results Reviewed: Laboratory Tests 02/11/24 03/23/24 12:40 09:04 WBC 6.8 Hgb 10.5 L D Hct 32.0 L D MCV 82.3 MCH 27.0 Plt Count 292 Estimated GFR > 60 Total Bilirubin 1.2 H AST 14 ALT 9 Alkaline Phosphatase 52 C-Reactive Protein < 0.10 Assessment & Plan Assessment & Plan (1) GERD (gastroesophageal reflux disease): Code(s): K21.9 - Gastro-esophageal reflux disease without esophagitis Category: Medical (2) Diarrhea: Code(s): R19.7 - Diarrhea, unspecified Category: Medical Plan Monegasque #Ovidio Live Her GI regimen last consistent pantoprazole and fiber. She says she is feeling quite well with this regimen. She was treated for a bacteria when she was in the [place] and this caused her improvement. She is aware of the upcoming EGD/colonoscopy 07/10 and she wishes to proceed with this. BUT IN THE END SHE DID NOT HAVE THE APPT FOR SCOPE THAT SHE THOUGHT SHE HAD.....there was a great deal of confusion and I clarified this myself with the schedulers as I don't want her to show up to the OR prepped for nothing. I will send a work load and have her rebooked. Her mother had esophageal cancer and gastritis and colitis. She does not know what type of colitis. She occasionally sees small amts of blood on the TT. There are no prior problems with anesthesia or sedation She has asthma that is controlled, and she denies cardiac problems. No ID problems. There is no known FHX of crc but her mother had colon polyps. ROV 6 mos. Coding Level of Care Code Est Pt Level 3 (29152) Diagnoses GERD (gastroesophageal reflux disease) K21.9 Diarrhea R19.7
== END 2024-07-10 13:38 | disposition home or self-care (01) ==
PROVIDERS: Visit Provider Nurse Practitioner
DX: K21.9 Gastro-esophageal reflux disease without esophagitis (principal); R19.7 Diarrhea, unspecified
CPT/HCPCS: 99213

== ENCOUNTER → 2024-07-10 13:08 | Outpatient (BNVA) | payer OTHER, SELFPAY | PROVIDERS: Visit Provider Nurse Practitioner | DX: K21.9 Gastro-esophageal reflux disease without esophagitis (principal); R19.7 Diarrhea, unspecified | CPT/HCPCS: 99212 ==

== ENCOUNTER 2024-11-08 08:41 | Day surgery (SDC) | payer OTHER, SELFPAY ==
[2024-11-06 13:56] VITALS: BMI 26.3
--- NOTE | 2024-11-07 08:55 | P.CONAN_ITS ---
Documented by User: Dina Flores NP 11/07/24 08:56 HPI - Anesthesia Eval Consult details Narrative: 34yo F for Upper Endoscopy and Colonoscopy [facility] Active Problems Active Problems: All Active Problems Nausea and vomiting (Acute) Diarrhea (Acute) Patellar malalignment syndrome of right knee (Acute) Irritable bowel syndrome with both constipation and diarrhea (Acute) GERD (gastroesophageal reflux disease) (Acute) Past Medical History Medical History Asthma GERD (gastroesophageal reflux disease) IBS (irritable bowel syndrome) Melena Right knee sprain Abdominal bloating Epigastric pain Family History Family History Father Stroke Mother Hypothyroidism Surgical History Surgical History (Updated 11/08/24 @ 08:53 by Domitila Fong RN) History of surgery of uterus History of esophagogastroduodenoscopy Social History Social History Alcohol intake: current Alcohol intake frequency: does not drink Patient Tobacco Use Status: Never used Tobacco Use of substances other than those prescribed or required for medical reasons: No Are you DNR?: No Advance Directives: No Advance Directives Information Provided: Yes Recently lost weight without trying: No Current occupational status: unemployed 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 [employer] Allergies Allergy/AdvReac Type Severity Reaction Status Date / Time No Known Allergies Allergy Verified 11/08/24 08:55 [No Known Allergies*] Exam Height,Weight and Vital Signs: Height 5 ft 6 in Weight 73.936 kg Assessment and Plan Assessment Anesthesia Assessment: Chart Reviewed Documented by User: Juancarlos Arevalo MD 11/08/24 09:53 [facility] Past Medical History Medical History Asthma GERD (gastroesophageal reflux disease) IBS (irritable bowel syndrome) Melena Right knee sprain Abdominal bloating Epigastric pain Patient : No Family History Family History Father Stroke Mother Hypothyroidism Family history of problems with anesthesia: Yes (Distant cousin had to be 'reanimated' after anseis. That happened in the [place] about a year ago.) Surgical History Surgical History (Updated 11/08/24 @ 08:53 by Domitila Fong RN) History of surgery of uterus History of esophagogastroduodenoscopy History of Problems with Anesthesia: No Social History Social History Alcohol intake: current Alcohol intake frequency: does not drink Patient Tobacco Use Status: Never used Tobacco Use of substances other than those prescribed or required for medical reasons: No Are you DNR?: No Advance Directives: No Advance Directives Information Provided: Yes Recently lost weight without trying: No Current occupational status: unemployed 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 That happened in the [place] about a year ago.) History of Problems with Anesthesia: No NPO: Yes ASA Class: II Final Preanesthetic Review: No Changes in Pt Med Stat, Meds/Allgs Chart Reviewed, Consent Obtained/Reviewed and Anes Risks/Benef Reviewed Patient Risk: Low Procedure Risk: Intermediate Anesthetic Plan Anesthetic Plan: Agree w/ Assess. and Plan and TIVA Disposition: Standard PACU
[2024-11-08 08:56] VITALS: BMI 26.1
[2024-11-08 09:12] LABS: UPreg QC Valid YES; Urine Pregnancy NEGATIVE (NEGATIVE)
--- NOTE | 2024-11-08 09:17 | MHC.SHP ---
Pre-Procedural Eval Section A - 24 Hr Update-Section A only Date of Service: 11/08/24 Section B - Complete if H&P > 30 days Chief Complaint: Abd pain, gastritis, changes in bowel habits Details of Present Illness: Right knee sprain Abdominal bloating Epigastric pain Melena Present Medications: see Short Stay Collaborative assessment Allergies: Allergies Allergy/AdvReac Type Severity Reaction Status Date / Time No Known Allergies Allergy Verified 11/08/24 08:55 [No Known Allergies*] Review of Systems Review of Systems Comment: Ten point ROS negative Exam Exam Comment: Gen appear: No acute distress HEENT: no icterus Chest: No overt resp distress Abd: soft, nontender, nondistended Psych: Stable affect, answering questions appropriately Neuro: A/Ox3 noted to move all extremities spontaneously Ext: no peripheral edema Plan Diagnosis/Plan: Unchanged I have reviewed the history and physical and performed a pertinent physical examination on my patient. No changes have occurred unless specified. Time Spent With Patient Time: Total time managing care of this patient today ____ minutes.
[2024-11-08 09:19] VITALS: BP 119/71; PULSE 78; RESP 15; TEMP 37.2; O2SAT 100
[2024-11-08] MEDS: Lactated Ringers 1,000 ML 100 ML IVCONT (09:26)
--- NOTE | 2024-11-08 10:06 | P.OPN-COLO_ITS ---
Colonoscopy Operative Note Operative Note Date of Service: 11/08/24 Narrative: Procedure: Upper endoscopy and colonoscopy Indication: Abd pain, gastritis, changes in bowel habits Endoscopist: Kristi Walters MD Anesthesia Provider: Dr Juancarlos Arevalo Anesthesia type: MAC Instrument: [id number]-[id number] and [id number]-[id number] EGD Procedure:?? The procedure, indications, preparation and potential complications were reviewed with the patient with the help of tracer clerk, who indicated understanding and gave written informed consent to proceed. The endoscope was introduced through the mouth, and advanced to the 2nd part of the duodenum. The mucosa was carefully examined on slow withdrawal of the endoscope. The patient tolerated the procedure well. There were no immediate complications.? EGD Findings:? * Esophagus:? The Z-line was at 35 cm. There was erythema and small friable erosions measuring < 5 mm at the GE junction compatible with esophagitis. Hiatal hernia was noted with a diaphragmatic hiatus at 40 cm. Cold forceps biopsies were taken from middle and lower esophagus to rule out eosinophilic esophagitis. * Stomach:? Normal gastric mucosa. Retroflexion was performed in the cardia. Random cold forceps biopsies were taken from the stomach. * Duodenum:? Normal duodenal mucosa. Cold forceps biopsies were taken from the duodenal bulb and 2nd portion of the duodenum to rule out celiac sprue. Colonoscopy Procedure:? The patient was then turned for the colonoscopy. A digital rectal exam was performed which was normal.? A distal attachment cap was affixed to the tip of the scope and the colonoscope was then inserted through the anus and advanced through the colon and advanced to the cecum at 75 cm and terminal ileum.? Appendiceal orifice and ileocecal valve were identified. Mucosa was carefully examined under high definition white light as the instrument was slowly withdrawn in a retrograde panoramic fashion. Retroflexion was performed in rectum. The procedure was not difficult. The quality of the prep was BBPS: 2+3+3 = adequate Withdrawal time 7 minutes Limitations: No limitations Findings: Mucosa: Normal colon and terminal ileum mucosa. Cold forceps biopsies were taken from the right and left side of the colon to rule out microscopic colitis. Impression: 1. Grade A esophagitis (biopsy) 2. Hiatal hernia 3. Normal stomach (biopsy) 4. Normal duodenum (biopsy) 5. Normal colon and terminal ileum mucosa (biopsy) Recommendations:?? * Follow-up path results * Consider barium swallow to evaluate hiatal hernia * Patient has previously been tried on H2RA, omeprazole and pantoprazole with minimal effect. Switched to rabeprazole 20 BID in case she is a [id number] metabolizer. * Avoid NSAIDs * H Pylori treatment if biopsies + * Asymptomatic colorectal ca screening to resume at 47 y.o
[2024-11-08 10:42] VITALS: BP 94/48; PULSE 81; RESP 18; TEMP 36.4; O2SAT 100
[2024-11-08 10:57] VITALS: BP 113/70; PULSE 70; RESP 16; TEMP 36.4; O2SAT 100
== END 2024-11-08 11:18 | disposition home or self-care (01) ==
PROVIDERS: Nurse Practitioner; Visit Provider Internal Medicine
PROC: (CPT 45380; principal; 2024-11-08 10:20)
DX: R19.4 Change in bowel habit (principal); K58.2 Mixed irritable bowel syndrome; K21.9 Gastro-esophageal reflux disease without esophagitis; R10.13 Epigastric pain; K29.50 Unspecified chronic gastritis without bleeding; K20.80 Other esophagitis without bleeding; K44.9 Diaphragmatic hernia without obstruction or gangrene
CPT/HCPCS: 45380; 43239; 81025; 88305; 88313; 88342; J2003; J2704

== ENCOUNTER → 2024-11-08 08:41 | Outpatient (BNV) | payer OTHER, SELFPAY | PROVIDERS: Visit Provider Internal Medicine | DX: R19.4 Change in bowel habit (principal); K29.70 Gastritis, unspecified, without bleeding; K20.90 Esophagitis, unspecified without bleeding | CPT/HCPCS: 43239; 45380 ==

== ENCOUNTER 2024-11-25 09:21 | Emergency (ER) | payer OTHER, SELFPAY ==
--- NOTE | ~2024-11-25 | XR_ITS ---
CLINICAL HISTORY: cough sob Chest radiographs, 2 views Comparison: CR/SR - CHEST 1 VIEW - 02/29/20 14:41 EDT Findings: The cardiomediastinal silhouette is not enlarged. Pulmonary vascularity is unremarkable. Mild airspace opacities within the right upper lobe along the minor fissure. Lungs are otherwise clear. No pleural effusion. No pneumothorax. IMPRESSION: Right upper lobe airspace disease. This document has been electronically signed by: Corey Gonzalez DO on 11/25/2024 10:17:26
--- NOTE | ~2024-11-25 | US_ITS ---
CLINICAL HISTORY: Epigastric RUQ tenderness. recent endoscopy US abdomen limited with duplex and color Doppler Comparison: CT/CA/SR - CT ABDOMEN PELVIS WO IV CON - 02/11/2024 02:55 PM EDT US/SR - US ABDOMEN LIMITED - 01/30/2022 08:22 AM EST Findings: Visualized pancreas is normal. Tail obscured by bowel gas. Liver is normal in size and echotexture. 4 mm echogenic focus right lobe probable granuloma. This is stable. Common duct 1.0 mm diameter. Gallbladder is physiologically distended. No gallstones, sludge or wall abnormalities. No gallbladder wall thickening. No pericholecystic fluid. No sonographic Lujan sign. Main portal vein antegrade. Right kidney measures, 11.0 cm in length. Normal cortical width and echotexture. No hydronephrosis calculus or mass. Impression: 1. Normal gallbladder. 2. Probable calcified granuloma of the liver. This is stable. This document has been electronically signed by: Bry Sagastume MD on 11/25/2024 10:57:49
[2024-11-25 09:22] VITALS: BP 126/59; PULSE 92; RESP 18; TEMP 37; O2SAT 100; BMI 26.7
--- NOTE | 2024-11-25 09:50 | ECG_ITS ---
Test Reason : CHEST PAIN Blood Pressure : / mmHG Vent. Rate : 087 BPM Atrial Rate : 087 BPM P-R Int : 140 ms QRS Dur : 074 ms QT Int : 338 ms P-R-T Axes : -09 009 025 degrees QTc Int : 406 ms Normal sinus rhythm Normal ECG When compared with ECG of 28-DEC-2019 09:45, No significant change was found Referred By: Teodora Hilario Electronically Signed By:CÉSAR MARIE MD
--- NOTE | 2024-11-25 10:03 | ED_ITS ---
HPI - URI/Sore Throat General Chief Complaint: Upper Respiratory Symptoms Stated Complaint: SOB, cough Time Seen by Provider: 11/25/24 09:37 Source: patient, RN notes reviewed and old records reviewed Mode of arrival: ambulatory History of Present Illness ED Provider: Teodora Hilario PA-C HPI Narrative: 34-year-old female with a past medical history of asthma, GERD, IBS, presenting to the ED complaining of dry cough, sore throat, SOB, chest discomfort with coughing, deep breathing, and eating x 1 week. Also reports upper abdominal pain since endoscopy/colonoscopy on 11/08. Reports fever T-max 103 degrees, denies taking antipyretics today. Denies ear pain, nausea, vomiting, diarrhea, travel, sick contacts Related Data Previous Rx's ?Medication ?Instructions ?Recorded ondansetron 4 mg disintegrating 4 mg PO Q8H PRN nausea and 01/30/22 tablet vomiting #10 tabs wheat dextrin 3 gram/3.5 gram oral 1.5 g PO BID 90 days #180 ea 04/18/24 powder packet (Benefiber Clear Sugar Free(dextrin)) rabeprazole 20 mg tablet,delayed 20 mg PO BID 8 weeks #112 tabs 11/08/24 release amoxicillin 500 mg tablet 1,000 mg (2 x 500 mg) PO Q12H 7 11/25/24 days #28 tabs azithromycin 250 mg tablet See Rx Instructions PO .COMPLEX #6 11/25/24 tabs Allergies Allergy/AdvReac Type Severity Reaction Status Date / Time No Known Allergies Allergy Verified 11/25/24 09:24 [No Known Allergies*] Review of Systems 2 Review of Systems: Yes all other systems are reviewed and are negative Constitutional: Constitutional: Reports as per [facility] Past Medical History Attestation statement: The following information was validated with the patient. Source: old records reviewed Medical History Asthma GERD (gastroesophageal reflux disease) IBS (irritable bowel syndrome) Melena Right knee sprain Abdominal bloating Epigastric pain Surgical History History of surgery of uterus History of esophagogastroduodenoscopy Family History Family History Father Stroke Mother Hypothyroidism Social History Social History Alcohol intake: current Alcohol intake frequency: does not drink Patient Tobacco Use Status: Never used Tobacco Smoked in Last 30 Days: No Use of substances other than those prescribed or required for medical reasons: No Advance Directives: No Advance Directives Information Provided: No Current occupational status: unemployed 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 Physical Exam 2 Vital Signs: Vital Signs: Last Vital Signs Temp 98.6 F 11/25/24 11:52 Pulse 96 11/25/24 11:52 Resp 16 11/25/24 11:52 BP 101/56 L 11/25/24 11:52 Pulse Ox 100 11/25/24 11:52 O2 Del Method Room Air 11/25/24 11:52 BMI result Body Mass Index 26.7 Const: General: cooperative, healthy appearing and no acute distress O rientation/consciousness: patient oriented x3 Limitations: no limitations HEENT: Head: Yes normal to inspection and Yes atraumatic Ears: hearing grossly normal bilaterally, TM's normal bilaterally and mastoids normal G eneral nose exam: Normal external nose present Face and sinus: Yes normal facial exam Mouth: no drooling Throat: Yes tonsils normal, Yes uvula midline, Yes posterior oropharynx abnormal (Mild erythema), No uvula laterally displaced and No uvular edema Eyes: General: appearance normal, both eyes and all related structures EOM: EOMs intact bilaterally Neck: Neck: Yes normal visual inspection and Yes no meningeal signs Resp: Effort & Inspection: normal respiratory effort, no respiratory distress and no stridor Auscultation: clear to auscultation bilaterally, no crackles and no wheezes Cardio: Rate: regular rate Heart sounds: S1 normal heart sound present and S2 normal heart sound present GI: Inspection: Yes normal to inspection Palpation (GI): Soft to palpation, Tenderness to palpation present (GI) in the epigastrum and in the RUQ; with no rebound tenderness, no guarding and not rigid : General: Yes no CVA tenderness Back/Spine/Pelvis: Back: no CVA tenderness Skin: Rashes: no rashes Wounds: no wounds Neuro: General: patient oriented x3, tone normal and no meningeal signs C ranial nerves: Yes CN's II-XII intact bilaterally Gait exam (Neuro): Normal gait present Extrem: General: Yes normal to inspection and Yes no pedal edema Course Course Course Narrative: -1116--mild leukocytosis of 11.5. H&H at patient's baseline. Labs otherwise reassuring. Troponin negative -D-dimer WNL, PE unlikely -viral studies negative CHEST 1 VIEW IMPRESSION: Right upper lobe airspace disease. CT ABDOMEN PELVIS WO IV CON Impression: 1. Normal gallbladder. 2. Probable calcified granuloma of the liver. This is stable. Results discussed with patient with motor vehicle parts interpreter. Will discharge patient home with antibiotics for treatment of pneumonia. Recommended GI follow-up. Discussed worrisome signs and symptoms and strict return precautions, and when to return to the emergency department. They verbalized understanding and feel safe for discharge at this time. Medical Decision Making Medical Decision Making [facility] Narrative: 34-year-old female with a past medical history of asthma, GERD, IBS, presenting to the ED complaining of dry cough, sore throat, SOB, chest discomfort with coughing, deep breathing, and eating x 1 week. Also reports upper abdominal pain since endoscopy/colonoscopy on 11/08. On exam vital signs stable, NAD, nontoxic appearing, lungs CTA, mild posterior oropharyngeal erythema appreciated. Uvula midline. Abdomen soft with epigastric/RUQ tenderness, no rebound or guarding. Concern for viral illness vs bronchitis vs pneumonia vs ACS or PE. Lower suspicion for DVT. Concern for gastritis/GERD vs cholecystitis/lithiasis vs pancreatitis. Rule out perforation from prior endoscopy/colonoscopy although lower suspicion at this time. Plan: EKG, labs, CXR, abdomen ultrasound, viral studies, rapid strep, re- evaluate Please refer to course for remaining clinical decision making, interpretation of labs/imaging results, and discussions with consultants and/or family members. Differential Diagnosis Differential Diagnoses: The differential diagnosis associated with the presentation includes As above Admission/Observation Consideration of admission/observation: Escalation of care including admission/observation considered Lab Data [facility] Lab Attestation statement: I reviewed the patient's lab results. 11/25/24 10:22 11/25/24 10:22 Labs: Lab Results 11/25/24 11/25/24 11/25/24 Range/Units 09:29 10:22 11:07 WBC 11.5 H (4.8-10.8) X10*3/uL RBC 4.08 L (4.20-5.50) X10*6/uL Hgb 10.2 L (12.0-16.0) g/dl Hct 32.8 L (37.0-47.0) % MCV 80.4 (80.0-98.0) fL MCH 25.0 L (27.0-33.0) pg MCHC 31.1 (31.0-35.0) g/dl RDW 16.1 H (11.0-16.0) % Plt Count 311 (160-400) X10*3/uL MPV 10.9 (9.4-12.3) fL Immature Gran % (Auto) 0.3 (0.0-0.4) % Neut % (Auto) 70.3 (45-73) % Lymph % (Auto) 22.1 (20-40) % Nuckolls % (Auto) 5.6 (2-11) % Eos % (Auto) 1.0 (0-4) % Baso % (Auto) 0.7 (0-2) % Lymph # (Auto) 2.6 (1.2-4.9) X10*3/uL Nuckolls # (Auto) 0.7 (0.1-1.2) X10*3/uL Eos # (Auto) 0.1 (0.0-0.4) X10*3/uL Baso # (Auto) 0.1 (0.0-0.2) X10*3/uL Abs Immat Gran (auto) 0.03 (0.00-0.03) X10*3/uL Absolute Neuts (auto) 8.1 (2.0-8.3) x10*3/uL Absolute Nucleated RBC 0.000 (0.0-0.012) X10*3/uL Nucleated RBC % (auto) 0.0 (0.0-0.2) /100WBC D-Dimer High Sensitivty < 150 NG/ML Sodium 140 (135-145) mmol/L Potassium 3.6 (3.3-5.1) mmol/L Chloride 111 H (96-108) mmol/L Carbon Dioxide 21 L (22-29) mmol/L Anion Gap 12 (12-20) BUN 6 L (9-16) mg/dL Creatinine 0.71 (0.5-1.4) mg/dL Estim Creat Clear Calc 117.8 Estimated GFR > 60 Random Glucose 86 (60-115) mg/dL Calcium 8.7 (8.4-10.2) mg/dL Magnesium 2.1 (1.6-2.6) mg/dL Total Bilirubin 1.2 H (0.0-1.0) mg/dL Direct Bilirubin 0.4 (0.0-0.5) mg/dL AST 15 (5-31) U/L ALT 9 (0-31) U/L Alkaline Phosphatase 60 (39-117) U/L Troponin I High Sens < 2.7 (<3.5-17.0) ng/L B-Natriuretic Peptide 21 (<100) pg/mL Total Protein 7.4 (6.5-8.0) g/dL Albumin 4.1 (3.5-5.0) g/dL Lipase 27 (8-78) U/L Influenza Type A (PCR) NEGATIVE (Negative) Influenza Type B (PCR) NEGATIVE (Negative) RSV RNA Qual (PCR) NEGATIVE (Negative) SARS-CoV-2 RNA (RT-PCR) NEGATIVE (Negative) S. pyogenes GrpA CLAUDE Negative (Negative) Independent Interpretation I performed an independent interpretation of an: EKG, Plain X-Ray and Ultrasound Radiology Impression Discussion of test interpretation with radiology: I have reviewed the radiologist's reading. External Record Review External record reviewed: Inpatient record, Office record, Outpatient record, Prior outpatient labs, Prior outpatient radiology, Primary care record and Outside ED record Tests considered The following testing was considered but not selected: As above Prescription Management I considered prescription management with: Pain Medication and Antibiotic Chronic Conditions Patient?s care impacted by: Other Social Determinants Patient?s care significantly limited by Social Determinants of Health including: Other Social Determinant of Health Discharge Plan Discharge Clinical Impression: Pneumonia Patient Disposition: Home, Self-Care Instructions: Community Acquired Pneumonia (DC) Additional Instructions: You have pneumonia. Amoxicillin and azithromycin or antibiotics please take as prescribed Please have close follow-up with your primary care doctor as well as your runner on If her symptoms persist or worsen you have constant worsening chest pain, shortness of breath, fever unresolved with medications return to the emergency depart Prescriptions: New amoxicillin 500 mg tablet 1,000 mg PO Q12H 7 Days Qty: 28 0RF azithromycin 250 mg tablet See Rx Instructions .ROUTE .COMPLEX Qty: 6 0RF Rx Instructions: take 500 mg today (day 1), then 250 mg for 4 days (days 2-5) No Action ondansetron 4 mg tablet,disintegrating 4 mg PO Q8H PRN (Reason: nausea and vomiting) Qty: 10 0RF rabeprazole 20 mg tablet,delayed release (DR/EC) 20 mg PO BID 56 Days Qty: 112 0RF Benefiber Clear SF (dextrin) 3 gram/3.5 gram powder in packet 1.5 g PO BID 90 Days Qty: 180 3RF Rx Instructions: mix into at least 4 oz water or juice before administering Referrals: Physician,Unknown J [Primary Care Provider] - Interventions: ED Discharge Assessment Last Done: 11/25/24 11:52 Discharge Date/Time: 11/25/24 11:52 Print Language: Turkmen
[2024-11-25 10:06] VITALS: O2SAT 100
--- NOTE | 2024-11-25 10:07 | PC.NURSE ---
pt is alert and oriented, skin appropriate for ethnicity, respirations even and unlabored, pt is reporting cough x3 days, and midsternal/epigastric pain 5/10 but she starts coughing increases to 10, pt is also stating that she had an endoscopy and colonoscopy performed and since then having upper abd pain and mid back pain
[2024-11-25 10:22] LABS: Influenza A PCR NEGATIVE (Negative); Influenza B PCR NEGATIVE (Negative); Resp Syncy Virus RNA Qual PCR NEGATIVE (Negative); SARS COV2 PCR INHOUSE NEGATIVE (Negative)
[2024-11-25 10:26] LABS: MANUAL DIFF FLAG NO
[2024-11-25 10:29] LABS: Basophils Absolute Auto 0.1 X10*3/uL (0.0-0.2); Basophils Percent Auto 0.7 % (0-2); Eosinophils Absolute Auto 0.1 X10*3/uL (0.0-0.4); Hematocrit 32.8 % (37.0-47.0); Hemoglobin 10.2 g/dl (12.0-16.0); Imm Gran Abs Auto 0.03 X10*3/uL (0.00-0.03); Imm Gran Pct Auto 0.3 % (0.0-0.4); Lymphocytes Absolute Auto 2.6 X10*3/uL (1.2-4.9); Lymphocytes Percent Auto 22.1 % (20-40); Mean Corpuscular HGB Conc 31.1 g/dl (31.0-35.0); Mean Corpuscular Volume 80.4 fL (80.0-98.0); Mean Platelet Volume 10.9 fL (9.4-12.3); Monocytes Absolute Auto 0.7 X10*3/uL (0.1-1.2); Monocytes Percent Auto 5.6 % (2-11); Neutrophils Absolute Auto 8.1 x10*3/uL (2.0-8.3); Neutrophils Percent Auto 70.3 % (45-73); Platelet Count 311 X10*3/uL (160-400); Red Blood Count 4.08 X10*6/uL (4.20-5.50); Red Cell Distribution Width 16.1 % (11.0-16.0); White Blood Count 11.5 X10*3/uL (4.8-10.8)
[2024-11-25 10:35] LABS: D Dimer High Sensitivity < 150 NG/ML
[2024-11-25 10:46] LABS: Alanine Aminotransferase 9 U/L (0-31); Albumin Level 4.1 g/dL (3.5-5.0); Alkaline Phosphatase 60 U/L (39-117); Anion Gap 12 (12-20); Aspartate Amino Transferase 15 U/L (5-31); Bilirubin Direct 0.4 mg/dL (0.0-0.5); Bilirubin Total 1.2 mg/dL (0.0-1.0); Blood Urea Nitrogen 6 mg/dL (9-16); Calcium 8.7 mg/dL (8.4-10.2); Carbon Dioxide 21 mmol/L (22-29); Chloride 111 mmol/L (96-108); Creatinine Clr Calc Pharmacy 117.8; Estimated Glomerular Filt Rate > 60; Glucose Random 86 mg/dL (60-115); Lipase 27 U/L (8-78); Magnesium 2.1 mg/dL (1.6-2.6); Potassium 3.6 mmol/L (3.3-5.1); Sodium 140 mmol/L (135-145); Total Protein 7.4 g/dL (6.5-8.0)
[2024-11-25 10:51] LABS: B Type Natriuretic Peptide 21 pg/mL (<100)
[2024-11-25 11:00] LABS: Troponin-I High Sensitivity < 2.7 ng/L (<3.5-17.0)
[2024-11-25 11:28] LABS: IDNOW Serial# 08D9AD1C; Strep A Nucleic Acid Negative (Negative)
[2024-11-25 11:52] VITALS: BP 101/56; PULSE 96; RESP 16; TEMP 37; O2SAT 100
== END 2024-11-25 11:52 | disposition home or self-care (01) ==
PROVIDERS: Physician Assistant; Emergency Provider Emergency Medicine
DX: J18.9 Pneumonia, unspecified organism (principal); R06.02 Shortness of breath; R05.9 Cough, unspecified; R07.89 Other chest pain; R10.2 Pelvic and perineal pain; Z03.818 Encounter for observation for suspected exposure to other biological agents ruled out; Z79.899 Other long term (current) drug therapy
CPT/HCPCS: 0241U; 36415; 71046; 76705; 80048; 80076; 83690; 83735; 83880; 84484; 85025; 85379; 87651; 93005; 99284

== ENCOUNTER → 2024-11-25 09:25 | Outpatient (BNV) | payer OTHER, SELFPAY | PROVIDERS: Emergency Provider Emergency Medicine; Visit Provider Radiology Diagnostic Radiology | DX: R06.02 Shortness of breath (principal) | CPT/HCPCS: 71046; 76705 ==

== ENCOUNTER → 2024-11-25 09:50 | Outpatient (BNV) | payer OTHER, SELFPAY | PROVIDERS: Emergency Provider Emergency Medicine; Visit Provider Internal Medicine Cardiovascular Disease | DX: R07.9 Chest pain, unspecified (principal) | CPT/HCPCS: 93010 ==

== ENCOUNTER 2025-05-03 16:22 | Outpatient (AMB) | payer OTHER, SELFPAY ==
--- NOTE | 2025-05-03 16:24 | A.OFFVIS_ITS ---
Vital Signs 05/03/25 16:31 Height 5 ft 6 in Weight 177 lb BMI 28.6 BP 124/76 Blood Pressure Location Lt brachial Position Sitting Pulse 80 Pulse Source Pulse Oximeter Pulse Oximetry (%) 100 Oxygen Delivery Method Room Air Intake Visit Reasons: s/p colonoscopy Intake Note: Established patient for s/p colo FUV. Elliott was done 10/2024 CC; C.O. chronic sx persistence on account of the insurance company denying her the new PPI that the MD rx'd s/p colo. Pt is hoping we can provide a new Rx that will actually be covered by the insurance. Pt experiencing Nausea, bloating, and GERD. 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 She says she is feeling quite well with this regimen. She was treated for a bacteria when she was in the [place] and this caused her improvement. She is aware of the upcoming EGD/colonoscopy 07/10 and she wishes to proceed with this. BUT IN THE END SHE DID NOT HAVE THE APPT FOR SCOPE THAT SHE THOUGHT SHE HAD.....there was a great deal of confusion and I clarified this myself with the schedulers as I don't want her to show up to the OR prepped for nothing. I will send a work load and have her rebooked. Her mother had esophageal cancer and gastritis and colitis. She does not know what type of colitis. She occasionally sees small amts of blood on the TT. There are no prior problems with anesthesia or sedation She has asthma that is controlled, and she denies cardiac problems. No ID problems. There is no known FHX of crc but her mother had colon polyps. ROV 6 mos. EGD/COLONOSCOPY EGD Findings:? * Esophagus:? The Z-line was at 35 cm. There was erythema and small friable erosions measuring < 5 mm at the GE junction compatible with esophagitis. Hiatal hernia was noted with a diaphragmatic hiatus at 40 cm. Cold forceps biopsies were taken from middle and lower esophagus to rule out eosinophilic esophagitis. * Stomach:? Normal gastric mucosa. Retroflexion was performed in the cardia. Random cold forceps biopsies were taken from the stomach. * Duodenum:? Normal duodenal mucosa. Cold forceps biopsies were taken from the duodenal bulb and 2nd portion of the duodenum to rule out celiac sprue. Findings: Mucosa: Normal colon and terminal ileum mucosa. Cold forceps biopsies were taken from the right and left side of the colon to rule out microscopic colitis. Impression: 1. Grade A esophagitis (biopsy) 2. Hiatal hernia 3. Normal stomach (biopsy) 4. Normal duodenum (biopsy) 5. Normal colon and terminal ileum mucosa (biopsy) Recommendations:?? * Follow-up path results * Consider barium swallow to evaluate hiatal hernia * Patient has previously been tried on H2RA, omeprazole and pantoprazole with minimal effect. Switched to rabeprazole 20 BID in case she is a OEX2O76 metabolizer. * Avoid NSAIDs * H Pylori treatment if biopsies + * Asymptomatic colorectal ca screening to resume at 47 y.o BIOPSY Received: 11/08/24 Diagnosis A. Duodenum, biopsy: Duodenal mucosa within normal limits. B. Stomach, random, biopsy: Antral-type and oxyntic mucosa with mild chronic inactive inflammation; no Helicobacter organisms seen. C. Esophagus, lower, biopsy: Squamous epithelium within normal limits; no inflammation seen. D. Esophagus, middle, biopsy: Squamous epithelium within normal limits; no inflammation seen. E. Colon, right, biopsy: Colonic mucosa within normal limits. F. Colon, left, biopsy: Colonic mucosa within normal limits. TODAYS VISIT Nepalese #[id number] The Aciphex was not covered so she has been going without medication! This has greatly worsened her sx! I am unsure if it just needs a PA, but since she did well symptomatically on pantorpazole we will re start this until we can explore our options. She is c/o CIC, but stopped taking her fiber. I recommend she restart it and if this does not work will consider other measures or TSH. ROV 5 weeks. 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 Review [employer] Systems Const Denies fatigue, Denies fever(s), Denies night sweats, Denies poor appetite and Denies weight loss ENT Reports Normal hearing present, Denies dental pain, Denies dysphagia, Denies hearing loss, Denies mouth pain, Denies odynophagia, Denies throat swelling, Denies tongue swelling and Reports other (Dentition adequate) Card Reports no additional complaints Resp Reports no additional complaints GI Details: Reports abdominal pain, Denies melena, Reports bloating, Denies hematochezia, Reports constipation, Denies GI cramping, Denies dysphagia, Denies excessive flatus, Denies early satiety, Reports dyspepsia, Reports heartburn, Denies diarrhea, Reports nausea, Denies odynophagia, Denies vomiting and Denies hematemesis Skin/Breast Denies pruritus, Denies lesions, Denies rash and Denies jaundice Neuro Reports Normal hearing present and Denies Abnormal speech present Endo Denies fatigue Aller/Immun Denies throat swelling and Denies tongue swelling Physical Exam Vital Signs: Last Vital Signs Pulse 80 05/03/25 16:31 BP 124/76 05/03/25 16:31 Pulse Ox 100 05/03/25 16:31 Oxygen Delivery Method Room Air 05/03/25 16:31 BMI result Body Mass Index 28.6 Const General: cooperative, no acute distress, well developed and well groomed Nutritional Appearance: average body habitus and well nourished Orientation/consciousness: oriented to person, oriented to place and oriented to time Limitations: language barrier HEENT Head: Yes normocephalic and Yes atraumatic Eyes General: appearance normal, both eyes and all related structures Pupils: Equal, round and reactive pupils present Neck Neck: Yes normal visual inspection and Yes no lymphadenopathy Thyroid: Thyroid normal Resp Effort & Inspection: normal respiratory effort and able to speak in complete sentences Auscultation: clear to auscultation bilaterally Cardio Rate: regular rate Rhythm: regular rhythm Heart sounds: Normal, physiologic split S2 sound present Peripheral pulses: radial pulses present and posterior tibial pulses present GI Inspection: No distended and No Abdominal panniculus present Palpation (GI): Soft to palpation, nontender, no guarding, not rigid and No hepatosplenomegaly present Percussion: Yes normal to percussion Auscultation: normal bowel sounds Rectal Exam - Female: deferred Skin General skin exam: no rashes or lesions noted, turgor normal, skin not dry, no jaundice, No spider nevi and no striae Rashes: no rashes Nails: normal Neuro General: oriented to person, oriented to place and oriented to time Cranial nerves: Yes Equal, round and reactive pupils present and Yes Normal hearing present Speech: No Abnormal speech present Extrem General: Yes normal to inspection, No clubbing, No cyanosis and No edema Psych Appearance: grossly normal and well kempt Mental Status: mental status grossly normal Speech and movement: Normal speech and movement present Affect: normal affect Attitude: cooperative Thought process: Normal thought process present and not confabulating Thought content: Normal thought content present Insight: Limited insight present (Psych) Judgement: Limited judgement present (Psych) Assessment & Plan Assessment & Plan (1) Erosive esophagitis: Code(s): K22.10 - Ulcer of esophagus without bleeding Category: Medical (2) Nausea and vomiting: Code(s): R11.2 - Nausea with vomiting, unspecified Category: Medical (3) Diarrhea: Code(s): R19.7 - Diarrhea, unspecified Category: Medical (4) GERD (gastroesophageal reflux disease): Code(s): K21.9 - Gastro-esophageal reflux disease without esophagitis Category: Medical Plan The Aciphex was not covered so she has been going without medication! This has greatly worsened her sx! I am unsure if it just needs a PA, but since she did well symptomatically on pantorpazole we will re start this until we can explore our options. She is c/o CIC, but stopped taking her fiber. I recommend she restart it and if this does not work will consider other measures or TSH. ROV 5 weeks. Medications: Changed From wheat dextrin mix into at least 4 oz water or juice before administering 1.5 grams PO BID 90 days 180 ea 3RF To wheat dextrin (Benefiber Clear Sugar Free(dextrin)) mix into at least 4 oz water or juice before administering 1.5 grams PO BID 180 ea 3RF 90 days Refilled rabeprazole 20 mg PO BID 60 tabs 7RF 30 days K22.10 - Ulcer of esophagus without bleeding rabeprazole 20 mg PO BID 60 tabs 7RF 30 days K22.10 - Ulcer of esophagus without bleeding Discontinued ondansetron Discontinued Reason: Patient Completed Course 4 mg PO Q8H PRN 10 tabs 0RF nausea and vomiting Coding Level of Care Code Est Pt Level 3 (16506) Diagnoses Erosive esophagitis K22.10 Nausea and vomiting R11.2 Diarrhea R19.7 GERD (gastroesophageal reflux disease) K21.9
--- OUTSIDE RECORDS SUMMARY | 2025-05-03 16:24 | XMS_ITS | Clinical Summary ---
Author Organization [facility] [address] [facility] Address [address] [place] [phone] Phone Care Team Providers Care Advertising Traffic Manager Name Role Phone Sherrie Sales MD Primary Care Provider Surgical History Surgery Date Site/Laterality Comments OTHER SURGICAL HISTORY PROCEDURE: DENIES PREVIOUS SURGERY OTHER SURGICAL HISTORY PROCEDURE: [place] DILATION & CURETTAGE DX&/THER NONOBSTETRIC Medical History Medical History Date Comments Gastritis DX:Gastritis Asthma DX:Asthma Hemangioma of liver DX:Hemangiom a of liver Family History Medical History Relation Name Comments Pancreatic cancer Aunt Breast cancer Paternal Grandmother Colon cancer Neg Hx Prostate cancer Neg Hx Uterine cancer Neg Hx Relation Name Status Comments Aunt Other Father Alive Maternal Grandfather Maternal Grandmother Mother Alive Paternal Grandfather Paternal Grandmother Social History Tobacco Use Types Packs/Day Years Used Date Smoking Tobacco: Never Smokeless Tobacco: Never Alcohol Use Standard Drinks/Week Comments No 0 (1 standard drink = 0.6 oz pur e alcohol) Comments Unknown Sex and Gender Information Value Date Recorded Sex Assigned at Not on file Legal Sex Female 5:40 PM EST Gender Identity Not on file Sexual Orientation Not on file Obstetrics History Last Filed Vital Signs Vital Sign Reading Time Taken Comments Blood Pressure 116/78 11/14/2023 3:31 PM EST Pulse 81 11/14/2023 3:31 PM EST Temperature - - Respiratory Rate - - Oxygen Saturation - - Inhaled Oxygen Concentration - - Weight 74.8 kg (165 lb) 11/14/2023 3:31 PM EST Height 167.6 cm (5' 6 ) 11/14/2023 3:31 PM EST Body Mass Index 26.63 11/14/2023 3:31 PM EST Plan of Treatment Upcoming Encounters Date Type Department Care Team (Late st Contact Info) Description 05/07/2025 3:45 PM EDT Office Visit Obstetrics and Gynecology - [facility] [address] [place] [phone] Kiara Ray, JANNY [address] [place] [address] 06/19/2025 2:30 PM EDT Office Visit Obstetrics & Gynecology - [address] [phone] Kiara Ray CNM [address] [place] [address] Health Maintenance Due Date Last Done Comments DTaP,Tdap,and Td Vaccines (1 - Tdap) 2011 Hepatitis B Vaccines (1 of 3 - 19+ 3-dose series) 2011 Depression Screening 10/30/2022 HIV Screening 10/30/2022 Hepatitis C Screening 10/30/2022 Social Influencers of Health Screening 10/30/2022 Cervical Cancer Screening: P ap Smear 10/07/2023 10/07/2020 COVID-19 Vaccine ( - 2023-2 5 season) 2024 Influenza Vaccine (Season Ended) 2025 HIB Vaccines Aged Out No longer eligi ble based on patient's age to complete this topic HPV Vaccines Aged Out No longer eligi ble based on patient's age to complete this topic Hepatitis A Vaccines Aged Out No long er eligible based on patient's age to complete this topic IPV Vaccines Aged Out No longer eligi ble based on patient's age to complete this topic MMR Vaccines Aged Out No longer eligi ble based on patient's age to complete this topic Meningococcal ACWY Vaccine Aged Out N o longer eligible based on patient's age to complete this topic Meningococcal B Vaccine Aged Out No l onger eligible based on patient's age to complete this topic Pneumococcal Vaccine: Pediat rics (0 to 5 Years) and At-Risk Patients (6 to 64 Years) Aged Out No longer eligi ble based on patient's age to complete this topic RSV Immunization Patients Un susan 20 months Aged Out No longer eligible b ased on patient's age to complete this topic Varicella Vaccines Aged Out No longer eligible based on patient's age to complete this topic Procedures Procedure Name Priority Date/Time Associated Diagnosis Comments PAP SMEAR Routine 10/07/2020 from Last 3 Months or Most Recently Relevant to Health Maintenance Results * Pap smear (10/07/2020) 10/07/2020 Narrative HISTORICAL TESTING LAB RESULTING AGENCY - 10/09/2020 12:51 PM EST [id number] THINPREP PAP, IMAGED: NEGATIVE FOR SQUAMOUS INTRAEPITHELIAL LESION AND MALIGNANCY . KRISTA BARNHART(ASCP) (CASE ELECTRONICALLY SIGNED 10 09 2020) ADEQUACY: SATISFACTORY ENDOCERVICAL/TRANSFORMATION ZONE COMPONENT PRESENT. SOURCE: THINPREP PAP HPV IF ASCUS, CERVICAL, IMAGED CLINICAL INFORMATION: HPV IF DIAGNOSIS OF ASCUS. PAP HX NEG, LMP 09/28/20 [Z12.4, Z01.419] us Cristino Farris MD LAB CYTOLOGY ORDERABLES Final Result HISTORICAL TESTING LAB RESULTING AGENCY from Last 3 Months or Most Recently Relevant to Health Maintenance Insurance [facility] MEDICAID ADVANTAGE Care Teams Advertising Traffic Manager Relationship Specialty Start Date End Date Sherrie Sales MD [address] [place] [address] ID [facility] - General 10/22/22
[2025-05-03 16:31] VITALS: BP 124/76; PULSE 80; O2SAT 100; BMI 28.6
== END 2025-05-03 17:01 | disposition home or self-care (01) ==
LOC: HO.HGI 16:23
PROVIDERS: Visit Provider Nurse Practitioner
DX: K22.10 Ulcer of esophagus without bleeding (principal); R11.2 Nausea with vomiting, unspecified; R19.7 Diarrhea, unspecified; K21.9 Gastro-esophageal reflux disease without esophagitis
CPT/HCPCS: 99213

== ENCOUNTER → 2025-05-03 16:22 | Outpatient (BNVA) | payer OTHER, SELFPAY | PROVIDERS: Visit Provider Nurse Practitioner | DX: K22.10 Ulcer of esophagus without bleeding (principal); K21.9 Gastro-esophageal reflux disease without esophagitis; R11.2 Nausea with vomiting, unspecified; R14.0 Abdominal distension (gaseous); R19.7 Diarrhea, unspecified | CPT/HCPCS: 99212 ==

== ENCOUNTER 2025-06-06 07:38 | Emergency (ER) | payer OTHER, SELFPAY ==
--- NOTE | ~2025-06-06 | XR_ITS ---
EXAMINATION: XR CHEST CLINICAL INFORMATION: shortness of breath COMPARISON: November 25, 2024. TECHNIQUE: Frontal view of the chest was obtained. FINDINGS: Linear and patchy opacities extending from the right and to a lesser extent left perihilar region. No pleural effusion or pneumothorax. Cardiomediastinal silhouette size is normal. S-shaped curvature of the thoracolumbar spine. Small cervical ribs, C7. XR/XR chest 1V IMPRESSION: Concerning acute small airway inflammatory processes. Electronically signed by: Rivera Foster MD 06/06/2025 10:53 AM EDT
[2025-06-06 07:40] VITALS: BP 106/71; PULSE 77; RESP 16; TEMP 36.8; O2SAT 100; BMI 26.4
--- OUTSIDE RECORDS SUMMARY | 2025-06-06 07:57 | XMS_ITS | Clinical Summary ---
Author Organization [address] Address [address] [place] [phone] Phone Care Team Providers Care Neighborhood Coordinator Name Role Phone Sherrie Sales MD Primary Care Provider [phone] Allergies No known active allergies Medications fluconazole (DIFLUCAN) 150 mg tablet Take 1 tab by mouth now. May repeat in 72 hours if still symptomatic after completing the Flagyl 2 tablet 5 Active clotrimazole-be tamethasone (LOTRISONE) 1-0.05 % cream Apply topically 2 (two) times a day for 7 days. 30 g 5 05/14/20 25 metroNIDAZOLE (FLAGYL) 500 mg tablet Take 1 tablet (500 mg total) by mouth 2 (two) times a day for 7 days. Do not use mouth wash or consume alcohol until 48 hours after last dose 14 tablet 5 05/15/20 25 Encounters Date Type Department Care Team Description 05/07/2025 3:45 PM EDT Office Visit Obstetrics and Gynecology - [address] [phone] Kiara Ray CNM Vaginal odor (Primary Dx); Screen for STD (sexually transmitted disease); IUD (intrauterine device) in place from Last 3 Months Surgical History Surgery Date Site/Laterality Comments OTHER SURGICAL HISTORY PROCEDURE: DENIES PREVIOUS SURGERY OTHER SURGICAL HISTORY PROCEDURE: DE DILATION & CURETTAGE DX&/THER NONOBSTETRIC Medical History [...] Date Smoking Tobacco: Never Smokeless Tobacco: Never Tobacco Cessation:Counseling Given: Not Answered Alcohol Use Standard Drinks/Week Comments No 0 (1 standard drink = 0.6 oz pur e alcohol) Comments No Sex and Gender Information Value Date Recorded Sex Assigned at Not on file Legal Sex Female 5:40 PM EST Gender Identity Not on file Sexual Orientation Not on file Obstetrics History Last Filed Vital Signs Vital Sign Reading Time Taken Comments Blood Pressure 129/82 05/07/2025 3:56 PM EDT Pulse 81 05/07/2025 3:56 PM EDT Temperature - - Respiratory Rate 18 05/07/2025 3:56 PM EDT Oxygen Saturation - - Inhaled Oxygen Concentration - - Weight 76.2 kg (168 lb) 05/07/2025 3:56 PM EDT Height 167.6 cm (5' 6 ) 05/07/2025 3:56 PM EDT Body Mass Index 27.12 05/07/2025 3:56 PM EDT Plan of Treatment Health Maintenance Due Date Last Done Comments Pneumococcal Vaccine: Pediatrics (0 to 5 Years) and At-Risk Patients (6 to 49 Years) (1 of 2 - PCV) 2011 Cholesterol Screening (Lipid Panel) 10/30/2022 Depression Screening 10/30/2022 HIV Screening 10/30/2022 Hepatitis C Screening 10/30/2022 Social Influencers of Health Screening 10/30/2022 Cervical Cancer Screening: P ap Smear 10/07/2023 10/07/2020 Hepatitis B Vaccines (3 of 3 - 19+ 3-dose series) 05/19/2024 01/03/2024, 11/18/2023 COVID-19 Vaccine (1 - 2023-2 5 season) 2024 Hypertension/CHF/CAD Annual BMP Blood Test 05/08/2025 Influenza Vaccine (#1) 2025 DTaP,Tdap,and Td Vaccines (3 - Td or Tdap) 09/21/2033 09/21/2023, 03/18/2020 HIB Vaccines Aged Out No longer eligi [...] to complete this topic RSV Immunization Patients Under 20 months Aged Out No longer eligible b ased on patient's age to complete this topic Varicella Vaccines Aged Out No longer eligible based on patient's age to complete this topic Procedures Procedure Name Priority Date/Time Associated Diagnosis Comments TRICHOMONAS VAGINALIS ANTIGEN Routine 05/07/2025 4:45 PM EDT Vaginal odor Screen for STD (sexually transmitted disease) CHLAMYDIA TRACHOMATIS AND NEISSERIA GONORRHOEAE PCR Routine 05/07/2025 4:45 PM EDT Vaginal odor Screen for STD (sexually transmitted disease) WET PREP, GENITAL Routine 05/07/2025 4:4 5 PM EDT Vaginal odor Screen for STD (sexually transmitted disease) PAP SMEAR Routine 10/07/2020 from Last 3 Months or Most Recently Relevant to Health Maintenance Results * Trichomonas vaginalis antigen (05/07/2025 4:45 PM EDT) Trichomonas vaginalis Negative Negative 05/07/2025 8:24 PM EDT [facility] Swab Vaginal structure / Unknown Non-blood Collection / Unknown 05/07/2025 4:45 PM EDT 05/07/2025 4:45 PM EDT Kiara Ray CNM LAB MICROBIOLOGY - GENERAL OR DERABLES Final Result [facility] [address] [place] [address], * Chlamydia trachomatis and Neisseria gonorrhoeae molecular study (05/07/2025 4:45 PM EDT) Pathologist [facility] Neisseria gonorrhoeae PCR Negative Negative LAB MOLECULAR DIAGNOSTICS METHOD 05/08/2025 9:23 AM EDT [facility] Chlamydia trachomatis PCR Negative Negative LAB MOLECULAR DIAGNOSTICS METHOD 05/08/2025 9:23 AM EDT [facility] Swab Cervix uteri structure / Unknown Non-blood Collection / Unknown 05/07/2025 4:45 PM EDT 05/07/2025 4:45 PM EDT Kiara [facility] LAB MICROBIOLOGY - GENERAL OR DERABLES Final Result Performing Organization Address [facility] Co de Phone Number [facility] [address] [place] [address], [place] [phone] * (ABNORMAL) Wet prep, genital (05/07/2025 4:45 PM EDT) Pathologist [facility] Clue Cells, Wet Prep Positive(A) Negative 05/07/2025 8:15 PM EDT [facility] Yeast, Wet Prep Positive(A) Negative 05/07/2025 8:15 PM EDT [facility] Trichomonas, Wet Prep Indeterminate Negative 05/07/2025 8:15 PM EDT [facility] Comment:Refer to Trichomonas antigen. Swab Vaginal structure / Unknown Non-blood Collection / Unknown 05/07/2025 4:45 PM EDT 05/07/2025 4:45 PM EDT [facility] - GENERAL OR DERABLES Final Result Performing Organization Address City/[facility]/ZIP Co de Phone Number [facility] [address] [place] [address], * Pap smear (10/07/2020) 10/07/2020 Narrative HISTORICAL TESTING LAB RESULTING AGENCY - 10/09/2020 12:51 PM EST [id number] THINPREP PAP, IMAGED: NEGATIVE FOR SQUAMOUS INTRAEPITHELIAL [...] Most Recently Relevant to Health Maintenance Insurance [facility] MEDICAID ADVANTAGE Care Teams Neighborhood Coordinator Relationship Specialty Start Date End Date Sherrie Sales MD [address], [place] PCP - General 10/22/22
[2025-06-06 08:29] VITALS: PULSE 70; RESP 16; O2SAT 100
[2025-06-06] MEDS: Albuterol/Iprat 2.5/0.5MG 3 ML AMPUL.NEB INHALE (08:29)
[2025-06-06] MEDS: Magnesium Sulfate/H2O 2 GM/50 ML PIGGYBACK IV (09:21)
[2025-06-06 09:29] LABS: MANUAL DIFF FLAG NO
[2025-06-06 09:32] LABS: Hematocrit 30.8 % (37.0-47.0); Hemoglobin 9.5 g/dl (12.0-16.0); Imm Gran Abs Auto 0.01 X10*3/uL (0.00-0.03); Imm Gran Pct Auto 0.2 % (0.0-0.4); Lymphocytes Absolute Auto 2.9 X10*3/uL (1.2-4.9); Mean Corpuscular HGB Conc 30.8 g/dl (31.0-35.0); Mean Corpuscular Hemoglobin 24.1 pg (27.0-33.0); Mean Corpuscular Volume 78.0 fL (80.0-98.0); NRBC Abs Auto 0.000 X10*3/uL (0.0-0.012); NRBC Pct Auto 0.0 /100WBC (0.0-0.2); Platelet Count 294 X10*3/uL (160-400); Red Blood Count 3.95 X10*6/uL (4.20-5.50); White Blood Count 5.7 X10*3/uL (4.8-10.8)
[2025-06-06 09:50] LABS: Anion Gap 8 (12-20); Blood Urea Nitrogen 7 mg/dL (9-16); Calcium 9.1 mg/dL (8.4-10.2); Carbon Dioxide 27 mmol/L (22-29); Chloride 107 mmol/L (96-108); Creatinine Clr Calc Pharmacy 129.9; Estimated Glomerular Filt Rate > 60; Potassium 4.0 mmol/L (3.3-5.1); Sodium 138 mmol/L (135-145)
[2025-06-06 10:06] LABS: Resp Syncy Virus RNA Qual PCR NEGATIVE (Negative); SARS COV2 PCR INHOUSE POSITIVE (Negative)
--- NOTE | 2025-06-06 10:33 | ED_ITS ---
HPI - Asthma General Chief Complaint: Asthma Stated Complaint: diff breathing Time Seen by Provider: 06/06/25 10:18 Source: patient, RN notes reviewed and old records reviewed Mode of arrival: ambulatory Limitations: no limitations History of Present Illness ED Provider: Sunil ROBLEDO Narrative: 84-year-old female with a past medical history significant for asthma, IBS, GERD presents for evaluation of shortness of breath. Patient reports not feeling well since Tuesday, 5 days ago Denies any headache or chest pain pain She has had intermittent dizziness. She reports increased cough and shortness of breath pain Her inhalers have not been helping She has had subjective fevers without documented fevers. Apparently the patient's daughter was recently ill with fever and viral symptoms but was diagnosed with [id number] disease The patient has no leg swelling, no recent travel Related Data Home Medications ?Medication ?Instructions ?Recorded ?Confirmed albuterol sulfate 90 mcg/actuation 2 puff inhalation Q ID PRN wheezing 05/03/25 aerosol inhaler (Ventolin HFA) cetirizine 10 mg tablet 10 mg PO DAILY 05/03/25 Previous Rx's ?Medication ?Instructions ?Recorded rabeprazole 20 mg tablet,delayed 20 mg PO BID 30 days #60 tabs 05/03/25 release wheat dextrin 3 gram/3.5 gram oral 1.5 g PO BID 90 day s #180 ea 05/03/25 powder packet (Benefiber Clear Sugar Free(dextrin)) prednisone 20 mg tablet 40 mg (2 x 20 mg) PO DAILY # 10 tabs 06/06/25 Allergies Allergy/AdvReac Type Severity Reaction Status Date / Time No Known Allergies (No Known Allergy Verified 06/06/25 07:45 Allergies*) Review of Systems 2 Constitutional: Constitutional: Reports body ache(s), Reports fever(s), Reports malaise and Denies weakness Eyes: Eyes: Denies blurry vision and Denies exophthalmos ENT: Denies vertigo, Reports dizziness and Denies dry mouth Cardiovascular: Cardiovascular: Denies chest pain, Reports dyspnea and Reports dyspnea on exertion Respiratory: Respiratory: Reports cough, Reports dyspnea and Reports dyspnea on exertion Gastrointestinal: Gastrointestinal: Denies abdominal pain, Denies nausea and Denies vomiting Musculoskeletal: Musculoskeletal: Denies back pain Integumentary/Breasts: Skin/Breast: Denies rash Neurologic: Denies vertigo, Reports dizziness and Denies weakness Psychiatric: Psychiatric: Denies anxiety PMFSH Past Medical History Medical History Asthma GERD (gastroesophageal reflux disease) IBS (irritable bowel syndrome) Melena Right knee sprain Abdominal bloating Epigastric pain Surgical History History of surgery of uterus History of esophagogastroduodenoscopy Family History Family History Father Stroke Mother Hypothyroidism Social History Social History Alcohol intake: current Alcohol intake frequency: does not drink Patient Tobacco Use Status: Never used Tobacco Smoked in Last 30 Days: No Use of substances other than those prescribed or required for medical reasons: No Advance Directives: No Advance Directives Information Provided: Yes Patient : No Current occupational status: unemployed 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 Physical Exam 2 Vital Signs: Vital Signs: Last Vital Signs Temp 98.3 F 06/06/25 07:40 Pulse 70 06/06/25 08:29 Resp 16 06/06/25 08:29 BP 106/71 06/06/25 07:40 Pulse Ox 100 06/06/25 07:40 O2 Del Method Room Air 06/06/25 07:40 BMI result Body Mass Index 26.4 Const: General: healthy appearing, comfortable, no acute distress, alert and awake Nutritional Appearance: well nourished Orientation/consciousness: p atient oriented x3 HEENT: Head: Yes normocephalic and Yes atraumatic Eyes: Eyelids: Yes eyelids normal Conjunctivae: conjunctivae normal S clerae: sclerae normal Corneas: corneas normal Pupils: Equal, round and reactive pupils present EOM: EOMs intact bilaterally Neck: Neck: Yes full ROM Resp: Effort & Inspection: normal respiratory effort, able to speak in complete sentences, no audible wheezes and not labored Auscultation: clear to auscultation bilaterally Cardio: Rate: regular rate Rhythm: regular rhythm GI: Inspection: No distended Palpation (GI): Soft to palpation, not firm, nontender, no guarding and not rigid Skin: General skin exam: elasticity normal Neuro: General: patient oriented x3 Cranial nerves: Yes Equal, round and reactive pupils present and Yes Bilaterally intact EOM present Cognition (Neuro): normal cognition Course Reevaluation(s) Reevaluation #1: Patient's x-ray does show perihilar process concerning for inflammatory process but more consistent with viral etiology, no dense consolidations. We will defer antibiotic treatment at this time Time: 10:58 Medications Administered Discontinued Medications Generic Name Dose Route Start Last Admin Trade Name Rom PRN Reason Stop Dose Admin Albuterol/Ipratropium 3 ml 06/06/25 08:24 06/06/25 08:29 Albuterol/Iprat 2.5/0.5mg 3 Ml Ampul.Neb INHALE 06/06/25 08:25 3 ml ONCE ONE Administration Magnesium Sulfate 2 gm in 50 mls @ 150 mls/hr 06/06/25 07:49 06/06/25 09:48 Magnesium Sulfate/H2o IV 06/06/25 08:08 Infused ONCE ONE Infusion Methylprednisolone Sodium Succinate 60 mg 06/06/25 07:49 06/06/25 09:21 Methylprednisolone Sod Succ 125 Mg/2 Ml Vial IVPUSH 06/06/25 07:50 60 mg ONCE ONE Administration Medical Decision Making Medical Decision Making MDM Narrative: 34-year-old female with a past medical history as above presents for evaluation of general malaise, shortness of breath and cough for the last 5 days. She has a history of asthma though her lungs are clear to auscultation without wheezing. She is afebrile and well-appearing. No evidence to suggest CHF and the patient is young with a history CHF, this is favored to be less likely. The patient did test positive for COVID-19 which is likely cause of her increasing cough, shortness of breath which may trigger and mild asthma exacerbation though again, she is not wheezy on my exam. She did receive a nebulizer treatment prior to my evaluation. The patient is negative for influenza and RSV. Plan to get a chest x-ray to rule out pneumonia. Anticipate discharge with prednisone for asthma exacerbation triggered by viral illness Differential Diagnosis Differential Diagnoses: The differential diagnosis associated with the presentation includes Asthma COVID-19 Influenza Pneumonia CHF less likely Lab Data MDM Lab Attestation statement: I reviewed the patient's lab results. No leukocytosis. The patient has a mild anemia which is chronic for her. Normal platelet count. No electrolyte abnormalities warranting intervention 06/06/25 09:20 06/06/25 09:20 Labs: Lab Results 06/06/25 Range/Units 09:20 WBC 5.7 (4.8-10.8) X10*3/uL RBC 3.95 L (4.20-5.50) X10*6/uL Hgb 9.5 L (12.0-16.0) g/dl Hct 30.8 L (37.0-47.0) % MCV 78.0 L (80.0-98.0) fL MCH 24.1 L (27.0-33.0) pg MCHC 30.8 L (31.0-35.0) g/dl RDW 16.4 H (11.0-16.0) % Plt Count 294 (160-400) X10*3/uL MPV 11.0 (9.4-12.3) fL Immature Gran % (Auto) 0.2 (0.0-0.4) % Neut % (Auto) 40.8 L (45-73) % Lymph % (Auto) 50.5 H (20-40) % Jackson % (Auto) 6.5 (2-11) % Eos % (Auto) 1.1 (0-4) % Baso % (Auto) 0.9 (0-2) % Lymph # (Auto) 2.9 (1.2-4.9) X10*3/uL Jackson # (Auto) 0.4 (0.1-1.2) X10*3/uL Eos # (Auto) 0.1 (0.0-0.4) X10*3/uL Baso # (Auto) 0.1 (0.0-0.2) X10*3/uL Abs Immat Gran (auto) 0.01 (0.00-0.03) X10*3/uL Absolute Neuts (auto) 2.3 (2.0-8.3) x10*3/uL Absolute Nucleated RBC 0.000 (0.0-0.012) X10*3/uL Nucleated RBC % (auto) 0.0 (0.0-0.2) /100WBC Sodium 138 (135-145) mmol/L Potassium 4.0 (3.3-5.1) mmol/L Chloride 107 (96-108) mmol/L Carbon Dioxide 27 (22-29) mmol/L Anion Gap 8 L (12-20) BUN 7 L (9-16) mg/dL Creatinine 0.64 (0.5-1.4) mg/dL Estim Creat Clear Calc 129.9 Estimated GFR > 60 Random Glucose 94 (60-115) mg/dL Calcium 9.1 (8.4-10.2) mg/dL Beta HCG, Quant < 2 mIU/mL Influenza Type A (PCR) NEGATIVE (Negative) Influenza Type B (PCR) NEGATIVE (Negative) RSV RNA Qual (PCR) NEGATIVE (Negative) SARS-CoV-2 RNA (RT-PCR) POSITIVE A (Negative) Independent Interpretation I performed an independent interpretation of an: Plain X-Ray Interpretation: Agree with Radiology interpretation Radiology Impression Discussion of test interpretation with radiology: I have reviewed the radiologist's reading. Radiologist Impression: FINDINGS: Linear and patchy opacities extending from the right and to a lesser extent left perihilar region. No pleural effusion or pneumothorax. Cardiomediastinal silhouette size is normal. S-shaped curvature of the thoracolumbar spine. Small cervical ribs, C7. XR/XR chest 1V IMPRESSION: Concerning acute small airway inflammatory processes. Electronically signed by: Rivera Foster MD 06/06/2025 10:53 AM EDT Discharge Plan Discharge Clinical Impression: COVID-19, Asthma Patient Disposition: Home, Self-Care Instructions: COVID-19 (Coronavirus Disease 2019) (ED) Additional Instructions: Your workup in the ER today was reassuring. Your blood work was significant for a mild anemia which you have had in the past. You tested positive for COVID-19. Your chest x-ray was clear. Follow up with your primary doctor, return for new or worsening symptoms. You may use prednisone 40 mg daily for the next 5 days in addition to your albuterol inhalers Prescriptions: New prednisone 20 mg tablet 40 mg PO DAILY Qty: 10 0RF No Action albuterol sulfate [Ventolin HFA] 90 mcg/actuation HFA aerosol inhaler 2 puff inhalation QID PRN (Reason: wheezing) cetirizine 10 mg tablet 10 mg PO DAILY rabeprazole 20 mg tablet,delayed release (DR/EC) 20 mg PO BID 30 Days Qty: 60 7RF Benefiber Clear SF (dextrin) 3 gram/3.5 gram powder in packet 1.5 g PO BID 90 Days Qty: 180 3RF Rx Instructions: mix into at least 4 oz water or juice before administering Print Language: Setswana
[2025-06-06 11:30] VITALS: BP 128/74; PULSE 74; RESP 16; TEMP 36.5; O2SAT 97
== END 2025-06-06 11:31 | disposition home or self-care (01) ==
PROVIDERS: Emergency Medicine; Emergency Provider Emergency Medicine
DX: U07.1 COVID-19 (principal); R06.02 Shortness of breath; J45.909 Unspecified asthma, uncomplicated
CPT/HCPCS: 36415; 71045; 80048; 84702; 85025; 87637; 94640; 96365; 96375; 99284; 99285; J2919; J3475

== ENCOUNTER → 2025-06-06 10:29 | Outpatient (BNV) | payer OTHER, SELFPAY | PROVIDERS: Emergency Provider Emergency Medicine; Visit Provider Radiology Diagnostic Radiology | DX: R06.02 Shortness of breath (principal) | CPT/HCPCS: 71045 ==

== ENCOUNTER 2025-07-05 11:47 | Emergency (ER) | payer OTHER, SELFPAY ==
--- NOTE | ~2025-07-05 | XR_ITS ---
EXAMINATION: XR CHEST 2 VIEWS HISTORY: chest pain COMPARISON: Comparison is made with the prior examination dated 06/06/2025. FINDINGS: PA and lateral views of the chest are submitted. The lungs are expanded and clear. There is no pleural effusion, pneumothorax, or pulmonary vascular congestion. The heart is normal in size. The bones are intact. XR/XR chest 2V IMPRESSION: No acute cardiopulmonary abnormality. Electronically signed by: Yeyo Arreola MD 07/05/2025 12:32 PM EDT
--- NOTE | 2025-07-05 11:48 | ECG_ITS ---
Test Reason : CP Blood Pressure : */* mmHG Vent. Rate : 80 BPM Atrial Rate : 80 BPM P-R Int : 140 ms QRS Dur : 74 ms QT Int : 352 ms P-R-T Axes : 42 51 28 degrees QTcB Int : 405 ms Normal sinus rhythm Normal ECG When compared with ECG of 25-Nov-2024 09:58, No significant change was found Referred By: Jennifer Acevedo Electronically Signed By: ZHEN URBAN
--- NOTE | 2025-07-05 11:56 | ED_ITS ---
HPI - General Adult General Chief complaint: Headache Stated complaint: chest pain numbness in hands Time Seen by Provider: 07/05/25 17:35 Related Data Home Medications ?Medication ?Instructions ?Recorded ?Confirmed albuterol sulfate 90 mcg/actuation 2 puff inhalation Q ID PRN wheezing 05/03/25 aerosol inhaler (Ventolin HFA) cetirizine 10 mg tablet 10 mg PO DAILY 05/03/25 Previous Rx's ?Medication ?Instructions ?Recorded rabeprazole 20 mg tablet,delayed 20 mg PO BID 30 days #60 tabs 05/03/25 release wheat dextrin 3 gram/3.5 gram oral 1.5 g PO BID 90 day s #180 ea 05/03/25 powder packet (Benefiber Clear Sugar Free(dextrin)) prednisone 20 mg tablet 40 mg (2 x 20 mg) PO DAILY # 10 tabs 06/06/25 Allergies Allergy/AdvReac Type Severity Reaction Status Date / Time No Known Allergies (No Known Allergy Verified 07/05/25 12:00 Allergies*) [facility] Past Medical History Medical History Asthma GERD (gastroesophageal reflux disease) IBS (irritable bowel syndrome) Melena Right knee sprain Abdominal bloating Epigastric pain Surgical History History of surgery of uterus History of esophagogastroduodenoscopy Family History Family History Father Stroke Mother Hypothyroidism Social History Social History Alcohol intake: current Alcohol intake frequency: does not drink Patient Tobacco Use Status: Never used Tobacco Advance Directives: No Advance Directives Information Provided: No Current occupational status: unemployed 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 Patient is a 34 year old assigned female at presenting to the emergency department with lip swelling, a headache, and chest pain. Patient states that she feels as though there is blood in her mouth, began having a headache, and is having chest pain. Patient's limited physical exam performed in triage was unremarkable, individual was in no acute distress, normal sounding voice - no drools, no tripodding or pursed lipped breathing. Detailed physical exam and review of systems are deferred to the lawn maintenance worker. EKG, labs, swabs ordered. Patient placed back in the waiting room pending room availability and results. Patient left without completing treatment. Patient left the department before myself or any of the other emergency department clinicians could review or explain physical exam findings, test results, need or lack there of for additional testing, etc. Medical Decision Making Lab Data 07/05/25 12:14 07/05/25 12:14 Labs: Lab Results 07/05/25 Range/Units 12:14 WBC 7.9 (4.8-10.8) X10*3/uL RBC 4.17 L (4.20-5.50) X10*6/uL Hgb 9.9 L (12.0-16.0) g/dl Hct 32.7 L (37.0-47.0) % MCV 78.4 L (80.0-98.0) fL MCH 23.7 L (27.0-33.0) pg MCHC 30.3 L (31.0-35.0) g/dl RDW 17.1 H (11.0-16.0) % Plt Count 247 (160-400) X10*3/uL MPV 11.7 (9.4-12.3) fL Immature Gran % (Auto) 0.1 (0.0-0.4) % Neut % (Auto) 51.8 (45-73) % Lymph % (Auto) 42.2 H (20-40) % Piatt % (Auto) 4.0 (2-11) % Eos % (Auto) 1.3 (0-4) % Baso % (Auto) 0.6 (0-2) % Lymph # (Auto) 3.3 (1.2-4.9) X10*3/uL Piatt # (Auto) 0.3 (0.1-1.2) X10*3/uL Eos # (Auto) 0.1 (0.0-0.4) X10*3/uL Baso # (Auto) 0.1 (0.0-0.2) X10*3/uL Abs Immat Gran (auto) 0.01 (0.00-0.03) X10*3/uL Absolute Neuts (auto) 4.1 (2.0-8.3) x10*3/uL Absolute Nucleated RBC 0.000 (0.0-0.012) X10*3/uL Nucleated RBC % (auto) 0.0 (0.0-0.2) /100WBC Smear Tech's Comments VERIFIED PT 12.4 (10.9-12.4) SEC INR 1.1 (0.9-1.1) Sodium 137 (135-145) mmol/L Potassium 3.9 (3.3-5.1) mmol/L Chloride 107 (96-108) mmol/L Carbon Dioxide 24 (22-29) mmol/L Anion Gap 10 L (12-20) BUN 8 L (9-16) mg/dL Creatinine 0.57 (0.5-1.4) mg/dL Estim Creat Clear Calc 145.7 Estimated GFR > 60 Random Glucose 85 (60-115) mg/dL Calcium 9.1 (8.4-10.2) mg/dL Magnesium 2.1 (1.6-2.6) mg/dL Total Bilirubin 0.9 (0.0-1.0) mg/dL AST 20 (5-31) U/L ALT 9 (0-31) U/L Alkaline Phosphatase 58 (39-117) U/L Total Protein 7.7 (6.5-8.0) g/dL Albumin 4.4 (3.5-5.0) g/dL Beta HCG, Quant < 2 mIU/mL Influenza Type A (PCR) NEGATIVE (Negative) Influenza Type B (PCR) NEGATIVE (Negative) RSV RNA Qual (PCR) NEGATIVE (Negative) SARS-CoV-2 RNA (RT-PCR) NEGATIVE (Negative) Discharge Plan Discharge Clinical Impression: Chest pain, Lip swelling Patient Disposition: Left W/O Completing Treatment Prescriptions: No Action prednisone 20 mg tablet 40 mg PO DAILY Qty: 10 0RF albuterol sulfate [Ventolin HFA] 90 mcg/actuation HFA aerosol inhaler 2 puff inhalation QID PRN (Reason: wheezing) cetirizine 10 mg tablet 10 mg PO DAILY rabeprazole 20 mg tablet,delayed release (DR/EC) 20 mg PO BID 30 Days Qty: 60 7RF Benefiber Clear SF (dextrin) 3 gram/3.5 gram powder in packet 1.5 g PO BID 90 Days Qty: 180 3RF Rx Instructions: mix into at least 4 oz water or juice before administering
[2025-07-05 11:57] VITALS: BP 128/83; PULSE 80; RESP 16; TEMP 37.1; O2SAT 100; BMI 26.3
[2025-07-05 12:29] LABS: Hematocrit 32.7 % (37.0-47.0); Hemoglobin 9.9 g/dl (12.0-16.0); Imm Gran Abs Auto 0.01 X10*3/uL (0.00-0.03); Imm Gran Pct Auto 0.1 % (0.0-0.4); Lymphocytes Absolute Auto 3.3 X10*3/uL (1.2-4.9); MANUAL DIFF FLAG SCAN; Mean Corpuscular HGB Conc 30.3 g/dl (31.0-35.0); Mean Corpuscular Hemoglobin 23.7 pg (27.0-33.0); Mean Corpuscular Volume 78.4 fL (80.0-98.0); NRBC Abs Auto 0.000 X10*3/uL (0.0-0.012); NRBC Pct Auto 0.0 /100WBC (0.0-0.2); PLT CLUMP 1; Red Blood Count 4.17 X10*6/uL (4.20-5.50); SCAN SMEAR FLAG 1
[2025-07-05 12:34] LABS: INTERNATIONAL NORM RATIO 1.1 (0.9-1.1); Prothrombin Time 12.4 SEC (10.9-12.4)
[2025-07-05 12:43] LABS: Alanine Aminotransferase 9 U/L (0-31); Albumin Level 4.4 g/dL (3.5-5.0); Alkaline Phosphatase 58 U/L (39-117); Anion Gap 10 (12-20); Aspartate Amino Transferase 20 U/L (5-31); Blood Urea Nitrogen 8 mg/dL (9-16); Calcium 9.1 mg/dL (8.4-10.2); Carbon Dioxide 24 mmol/L (22-29); Chloride 107 mmol/L (96-108); Creatinine Clr Calc Pharmacy 145.7; Estimated Glomerular Filt Rate > 60; Magnesium 2.1 mg/dL (1.6-2.6); Potassium 3.9 mmol/L (3.3-5.1); Sodium 137 mmol/L (135-145); Total Protein 7.7 g/dL (6.5-8.0)
[2025-07-05 12:57] LABS: Resp Syncy Virus RNA Qual PCR NEGATIVE (Negative); SARS COV2 PCR INHOUSE NEGATIVE (Negative)
[2025-07-05 13:31] LABS: Platelet Count 247 X10*3/uL (160-400); White Blood Count 7.9 X10*3/uL (4.8-10.8)
== END 2025-07-05 20:40 | disposition left against medical advice (07) ==
PROVIDERS: Physician Assistant Medical; Emergency Provider Emergency Medicine
DX: R07.9 Chest pain, unspecified (principal); K13.0 Diseases of lips; R20.0 Anesthesia of skin; J45.909 Unspecified asthma, uncomplicated
CPT/HCPCS: 36415; 71046; 80053; 83735; 84702; 85025; 85610; 87637; 93005; 99283

== ENCOUNTER → 2025-07-05 11:48 | Outpatient (BNV) | payer OTHER, SELFPAY | PROVIDERS: Visit Provider Internal Medicine | DX: R07.9 Chest pain, unspecified (principal) | CPT/HCPCS: 93010 ==

== ENCOUNTER → 2025-07-05 11:58 | Outpatient (BNV) | payer OTHER, SELFPAY | PROVIDERS: Visit Provider Radiology Diagnostic Radiology | DX: R07.9 Chest pain, unspecified (principal) | CPT/HCPCS: 71046 ==

== ENCOUNTER 2025-09-12 07:29 | Emergency (ER) | payer OTHER, SELFPAY ==
--- NOTE | ~2025-09-12 | CT_ITS ---
EXAMINATION: CT HEAD WITHOUT CONTRAST CLINICAL INFORMATION: headache COMPARISON: None available. TECHNIQUE: Contiguous axial imaging was performed from the skull base to vertex without intravenous administration of contrast. This CT examination was performed using dose optimization techniques as appropriate, variously including the following: *Automated exposure control *Adjustment of mA and/or kV according to patient size (this includes techniques or standardized protocols for targeted exams where dose is matched to indication/reason for exam; i.e. extremities or head) *Use of iterative reconstruction technique DLP: 698 mGy-cm FINDINGS: No acute intracranial hemorrhage, mass effect, midline shift, hydrocephalus or herniation. Edwards-white matter differentiation is normal. Sellar/suprasellar region demonstrated no gross masses. Craniocervical junction demonstrates normal position of the cerebellar tonsils. Poor pneumatization of the left frontal sinus. Mucosal thickening, left frontal sinus. Tympanic cavities and mastoid air cells are aerated. CT/CT head/brain wo IV con IMPRESSION: No acute intracranial hemorrhage or acute brain abnormality by CT. Electronically signed by: Rivera Foster MD 09/12/2025 12:57 PM EDT
--- NOTE | ~2025-09-12 | XR_ITS ---
EXAMINATION: XR CHEST 1 VIEW HISTORY: CP COMPARISON: Comparison is made with the prior examination dated 07/05/2025. FINDINGS: A single PA view of the chest is submitted. The lungs are expanded and clear. There is no pleural effusion, pneumothorax, or pulmonary vascular congestion. The heart is normal in size. The bones are intact. XR/XR chest 1V IMPRESSION: No acute cardiopulmonary abnormality. Electronically signed by: Yeyo Arreola MD 09/12/2025 08:31 AM EDT
--- NOTE | 2025-09-12 07:30 | ECG_ITS ---
Test Reason : cp Blood Pressure : */* mmHG Vent. Rate : 70 BPM Atrial Rate : 70 BPM P-R Int : 138 ms QRS Dur : 70 ms QT Int : 346 ms P-R-T Axes : 36 50 15 degrees QTcB Int : 373 ms Normal sinus rhythm Normal ECG When compared with ECG of 05-Jul-2025 11:46, No significant change was found Referred By: Generic ED Physician Electronically Signed By: Ok Cuevas
[2025-09-12 07:54] VITALS: BP 118/77; PULSE 75; RESP 14; TEMP 36.8; O2SAT 100; BMI 25.1
[2025-09-12 08:23] LABS: MANUAL DIFF FLAG NO
[2025-09-12 08:27] LABS: Hematocrit 34.6 % (37.0-47.0); Hemoglobin 10.4 g/dl (12.0-16.0); Imm Gran Abs Auto 0.01 X10*3/uL (0.00-0.03); Imm Gran Pct Auto 0.2 % (0.0-0.4); Lymphocytes Absolute Auto 2.6 X10*3/uL (1.2-4.9); Mean Corpuscular HGB Conc 30.1 g/dl (31.0-35.0); Mean Corpuscular Hemoglobin 23.0 pg (27.0-33.0); Mean Corpuscular Volume 76.4 fL (80.0-98.0); NRBC Abs Auto 0.000 X10*3/uL (0.0-0.012); NRBC Pct Auto 0.0 /100WBC (0.0-0.2); Platelet Count 357 X10*3/uL (160-400); Red Blood Count 4.53 X10*6/uL (4.20-5.50); White Blood Count 4.7 X10*3/uL (4.8-10.8)
--- NOTE | 2025-09-12 08:28 | ED_ITS ---
HPI - General Adult General Chief complaint: General Medical Stated complaint: chest pain, neck pain Time Seen by Provider: 09/12/25 07:49 Source: patient and radiology rn Mode of arrival: ambulatory Limitations: no limitations History of Present Illness ED Provider: DR. 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 Patient recently traveled to [facility]. No SOB, no fever, no chills, no exposure to sick contacts. Related Data Home Medications ?Medication ?Instructions ?Recorded ?Confirmed albuterol sulfate 90 mcg/actuation 2 puff inhalation Q ID PRN wheezing 05/03/25 aerosol inhaler (Ventolin HFA) cetirizine 10 mg tablet 10 mg PO DAILY 05/03/25 Previous Rx's ?Medication ?Instructions ?Recorded rabeprazole 20 mg tablet,delayed 20 mg PO BID 30 days #60 tabs 05/03/25 release wheat dextrin 3 gram/3.5 gram oral 1.5 g PO BID 90 day s #180 ea 05/03/25 powder packet (Benefiber Clear Sugar Free(dextrin)) prednisone 20 mg tablet 40 mg (2 x 20 mg) PO DAILY # 10 tabs 06/06/25 ibuprofen 600 mg tablet 600 mg PO Q8H PRN pain #14 t abs 09/12/25 Allergies Allergy/AdvReac Type Severity Reaction Status Date / Time No Known Allergies (No Known Allergy Verified 09/12/25 08:02 Allergies*) Review of Systems 2 Review of Systems: All other systems are reviewed and are negative Constitutional: Reports as per HPI and Reports no additional constitutional complaints Eyes: Reports as per HPI and Reports no additional eye complaints Reports system reviewed and no additional complaints, except as documented Cardiovascular: Reports as per HPI and Reports no additional cardiovascular complaints Respiratory: Reports as per HPI and Reports no additional respiratory complaints Gastrointestinal: Reports as per HPI and Reports no additional gastrointestinal complaints Genitourinary: Reports no additional female genitourinary complaints Musculoskeletal: Reports no additional musculoskeletal complaints Skin/Breast: Reports system reviewed and no additional complaints, except as docu Psychiatric: Reports no additional psychiatric complaints Endocrine: Reports no additional endocrine complaints Hematologic/Lymphatic: Reports no additional hematologic/lymphatic complaints Allergic/Immunologic: Reports no additional allergic/immunologic complaints Reports system reviewed and no additional complaints, except as documented and Reports Abnormal speech present [facility] Past Medical History Medical History Asthma GERD (gastroesophageal reflux disease) IBS (irritable bowel syndrome) Melena Right knee sprain Abdominal bloating Epigastric pain Surgical History History of surgery of uterus History of esophagogastroduodenoscopy Family History Family History Father Stroke Mother Hypothyroidism Social History Social History Alcohol intake: current Alcohol intake frequency: does not drink Patient Tobacco Use Status: Never used Tobacco Smoked in Last 30 Days: No Use of substances other than those prescribed or required for medical reasons: No Advance Directives: No Advance Directives Information Provided: No Do you have a plan to hurt others: No Plan Patient : No Current occupational status: unemployed 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 Blood pressure elevated. Heart rate normal. Respiratory rate normal. Temperature normal. Oxygen saturation normal. Appearance: Alert. Oriented X3. No acute distress. Head: Normal external exam. Normocephalic. Atraumatic. No Fagan signs noted. No raccoon eyes noted Eyes: PERRLA. EOMI. Conjunctiva and sclera normal. Eyelids normal. ENT: TM's Normal. Pharynx normal. Uvula midline. Moist mucous membranes. No trismus noted. No drooling noted. No muffled voice noted. Neck: Normal inspection. Neck supple. FROM. No adenopathy. Thyroid Normal. No meningeal signs. No neck mass noted. CVS: Normal heart rate and rhythm. Heart sound normal. No murmurs noted. Pulses normal throughout. Respiratory: No respiratory distress. Painless inspiration. Breath sounds normal. No wheezes/rales/rhonchi noted. Chest nontender. No accessory muscle usage noted or decreased air movement noted. Abdomen: Soft and nontender. Bowel sounds normal in all 4 quadrants. No distention noted. No organomegaly noted. No visible injury noted. Back: No CVA tenderness. Full range of motion noted. Skin: Skin warm and dry. Normal skin color. Normal skin turgor. No rashes/lesions/lacerations noted. Extremities: No lower extremity edema. Extremities exhibit normal range of motion. Extremities nontender. Neuro: Oriented X 3. Cranial nerve exam: II-XII are grossly intact No motor deficit. No sensory deficit. Reflexes normal. Course Reevaluation(s) Reevaluation #1: 35-year-old female came in for evaluation of neck pain radiating to the right side shoulder and chest area also give the patient headache physical exam is consistent with cervical radiculopathy, no neurological deficit. Pulmonary embolism is extremely unlikely with negative D-dimer and stable vital signs, ACS is unfavorable diagnosis with negative troponin and unremarkable EKG. Will discharge with ibuprofen, rest, avoid any strenuous activity. Normal neuro exam and head CT. Time: 13:00 Medications Administered Discontinued Medications Generic Name Dose Route Start Last Admin Trade Name Freq PRN Reason Stop Dose Admin Ibuprofen 800 mg 09/12/25 08:32 09/12/25 08:36 Ibuprofen 800 Mg Tablet PO 09/12/25 08:33 800 mg ONCE ONE Administration Medical Decision Making Differential Diagnosis Differential Diagnoses: The differential diagnosis associated with the presentation includes (ACS, pulmonary embolism, cervical radiculopathy, pneumonia, pneumothorax, pleural effusion.) Admission/Observation Consideration of admission/observation: Escalation of care including admission/observation considered Lab Data MDM Lab Attestation statement: I reviewed the patient's lab results. 09/12/25 08:17 09/12/25 08:17 Labs: Lab Results 09/12/25 09/12/25 09/12/25 Range/Units 08:10 08:17 08:36 WBC 4.7 L (4.8-10.8) X10*3/uL RBC 4.53 (4.20-5.50) X10*6/uL Hgb 10.4 L (12.0-16.0) g/dl Hct 34.6 L (37.0-47.0) % MCV 76.4 L (80.0-98.0) fL MCH 23.0 L (27.0-33.0) pg MCHC 30.1 L (31.0-35.0) g/dl RDW 17.0 H (11.0-16.0) % Plt Count 357 D (160-400) X10*3/uL MPV 10.5 (9.4-12.3) fL Immature Gran % (Auto) 0.2 (0.0-0.4) % Neut % (Auto) 36.6 L (45-73) % Lymph % (Auto) 54.7 H (20-40) % [place] % (Auto) 5.7 (2-11) % Eos % (Auto) 1.5 (0-4) % Baso % (Auto) 1.3 (0-2) % Lymph # (Auto) 2.6 (1.2-4.9) X10*3/uL [place] # (Auto) 0.3 (0.1-1.2) X10*3/uL Eos # (Auto) 0.1 (0.0-0.4) X10*3/uL Baso # (Auto) 0.1 (0.0-0.2) X10*3/uL Abs Immat Gran (auto) 0.01 (0.00-0.03) X10*3/uL Absolute Neuts (auto) 1.7 L (2.0-8.3) x10*3/uL Absolute Nucleated RBC 0.000 (0.0-0.012) X10*3/uL Nucleated RBC % (auto) 0.0 (0.0-0.2) /100WBC Hold Purple Top SEE NOTE D-Dimer High Sensitivty < 150 NG/ML Sodium 139 (135-145) mmol/L Potassium 4.2 (3.3-5.1) mmol/L Chloride 106 (96-108) mmol/L Carbon Dioxide 26 (22-29) mmol/L Anion Gap 11 L (12-20) BUN 10 (9-16) mg/dL Creatinine 0.60 (0.5-1.4) mg/dL Estim Creat Clear Calc 129.6 Estimated GFR > 60 Random Glucose 96 (60-115) mg/dL Calcium 9.5 (8.4-10.2) mg/dL Total Bilirubin 1.7 H (0.0-1.0) mg/dL Direct Bilirubin 0.5 (0.0-0.5) mg/dL AST 20 (5-31) U/L ALT 16 (0-31) U/L Alkaline Phosphatase 63 (39-117) U/L Troponin I High Sens < 2.7 (<3.5-17.0) ng/L Total Protein 8.5 H (6.5-8.0) g/dL Albumin 5.0 (3.5-5.0) g/dL Lipase 36 (8-78) U/L Beta HCG, Quant < 2 mIU/mL Urine Color Yellow Urine Appearance Clear Urine pH 8.5 (5.0-9.0) Ur Specific [place] 1.015 (1.005-1.025) Urine Protein Negative (Neg-Trace) mg/dL Urine Glucose (UA) Negative (Negative) mg/dL Urine Ketones Negative (Negative) mg/dL Urine Blood Negative (Negative) Urine Nitrite Negative (Negative) Ur Leukocyte Esterase Trace H (Negative) Urine RBC 0-2 (0-2) /HPF Urine WBC 0-5 (0-5) /HPF Ur Squamous Epith Cells 3-5 (0-2) /HPF Urine Bacteria Trace (None Seen) Hyaline Casts 0-2 (0-2) /LPF Independent Interpretation I performed an independent interpretation of an: Plain X-Ray (Chest: No acute intrathoracic pathology.) and CT Scan (Head: No acute intracranial pathology.) Radiology Impression Discussion of test interpretation with radiology: I have reviewed the radiologist's reading. Discharge Plan Discharge Clinical Impression: Cervical radiculopathy Patient Disposition: Home, Self-Care Instructions: Cervical Radiculopathy (ED) Prescriptions: New ibuprofen 600 mg tablet 600 mg PO Q8H PRN (Reason: pain) Qty: 14 0RF No Action prednisone 20 mg tablet 40 mg PO DAILY Qty: 10 0RF albuterol sulfate [Ventolin HFA] 90 mcg/actuation HFA aerosol inhaler 2 puff inhalation QID PRN (Reason: wheezing) cetirizine 10 mg tablet 10 mg PO DAILY rabeprazole 20 mg tablet,delayed release (DR/EC) 20 mg PO BID 30 Days Qty: 60 7RF Benefiber Clear SF (dextrin) 3 gram/3.5 gram powder in packet 1.5 g PO BID 90 Days Qty: 180 3RF Rx Instructions: mix into at least 4 oz water or juice before administering Referrals: Sally Lin MD [Primary Care Provider, Pediatrics] Print Language: Kyrgyz
[2025-09-12 08:47] LABS: Appearance Urine Clear; Glucose Urine UA Negative (Negative); PH 8.5 (5.0-9.0); Specific Gravity - Urine 1.015 (1.005-1.025); UMIC TRIGGER UACC YES
[2025-09-12 08:50] LABS: Alanine Aminotransferase 16 U/L (0-31); Albumin Level 5.0 g/dL (3.5-5.0); Alkaline Phosphatase 63 U/L (39-117); Anion Gap 11 (12-20); Aspartate Amino Transferase 20 U/L (5-31); Blood Urea Nitrogen 10 mg/dL (9-16); Calcium 9.5 mg/dL (8.4-10.2); Carbon Dioxide 26 mmol/L (22-29); Chloride 106 mmol/L (96-108); Creatinine Clr Calc Pharmacy 129.6; Estimated Glomerular Filt Rate > 60; Lipase 36 U/L (8-78); Potassium 4.2 mmol/L (3.3-5.1); Sodium 139 mmol/L (135-145); Total Protein 8.5 g/dL (6.5-8.0)
[2025-09-12 08:51] LABS: Troponin-I High Sensitivity < 2.7 ng/L (<3.5-17.0)
--- NOTE | 2025-09-12 09:03 | PC.NURSE ---
site interpreter utilized. pt presents from triage a&ox4. vss and up to date. 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 c/o intermittent left sternal chest pain w/ associated pain/numbness/tingling to upper/lower extremities bilaterally x 1 month. pt reports sx worsened x yesterday w/ associated right sided neck pain/headache/tingling to mouth. ibuprofen w/o relief. recent travel to [facility] x beginning of the month. mild sob. denies anticoagulation use. ekg obtained in triage. 20gIV placed in the left forearm. medication administered per provider order. labs/urine obtained/sent to lab. pt seen by ED provider/aware of plan of care. pending CXR to be completed. on RA w/o difficulty - no sob/wob noted. respirations even/unlabored. plan of care ongoing. call interiano placed within reach.
[2025-09-12 09:05] LABS: D Dimer High Sensitivity < 150 NG/ML
--- OUTSIDE RECORDS SUMMARY | 2025-09-12 09:30 | XMS_ITS | Clinical Summary ---
Author Organization [facility] [address] [facility] Building Address [address] [place] [address] Phone Care Team Providers Care Client Delivery Specialist Name Role Phone Sherrie Sales MD Primary Care Provider Allergies No known active allergies Medications fluconazole (DIFLUCAN) 150 mg tablet Take 1 tab by mouth now. May repeat in 72 hours if still symptomatic after completing the Flagyl 2 tablet 5 Active Surgical History Surgery Date Site/Laterality Comments OTHER SURGICAL HISTORY PROCEDURE: DENIES PREVIOUS SURGERY OTHER SURGICAL HISTORY PROCEDURE: [place] DILATION & CURETTAGE DX&/THER NONOBSTETRIC Medical History [...] Years) (1 of 2 - PCV) 2011 HPV Vaccines (1 - 3-dose SCD M series) 2019 Cholesterol Screening (Lipid Panel) 10/30/2022 HIV Screening 10/30/2022 Hepatitis C Screening 10/30/2022 Social Influencers of Health Screening 10/30/2022 Cervical Cancer Screening: P ap Smear 10/07/2023 10/07/2020 Hepatitis B Vaccines (3 of 3 - 19+ 3-dose series) 05/19/2024 01/03/2024, 11/18/2023 Depression Screening 11/28/2024 Hypertension/CHF/CAD Annual BMP Blood Test 05/08/2025 COVID-19 Vaccine (1 - 2023-2 5 season) 2025 Influenza Vaccine (#1) 2025 DTaP,Tdap,and Td Vaccines (3 - Td or Tdap) 09/21/2033 09/21/2023, 03/18/2020 RSV Immunization Adult Patients (1 - 1-dose 75+ series) 2067 HIB Vaccines Aged Out No longer eligi [...] RESULTING AGENCY - 10/09/2020 12:51 PM EST [id number] THINPREP PAP, IMAGED: NEGATIVE FOR SQUAMOUS INTRAEPITHELIAL [...] Relevant to Health Maintenance Insurance [facility] MEDICAID ADVANTAGE Care Teams Client Delivery Specialist Relationship Specialty Start Date End Date Sherrie Sales MD [address] [place] [address] [place] PCP - General 10/22/22
[2025-09-12 10:00] VITALS: BP 110/73; PULSE 70; RESP 16; TEMP 36.9; O2SAT 100
[2025-09-12 12:20] VITALS: BP 127/87; PULSE 75; RESP 18; TEMP 36.2; O2SAT 100
[2025-09-12 12:33] VITALS: BP 136/74; PULSE 69; RESP 18; TEMP 36.7; O2SAT 100
[2025-09-12 13:24] VITALS: BP 136/74; PULSE 69; RESP 18; TEMP 36.7; O2SAT 100
== END 2025-09-12 13:30 | disposition home or self-care (01) ==
PROVIDERS: Emergency Provider Emergency Medicine; PCP Pediatrics
DX: M54.12 Radiculopathy, cervical region (principal)
CPT/HCPCS: 36415; 70450; 71045; 80048; 80076; 81001; 83690; 84484; 84702; 85025; 85379; 93005; 99284; 99285

== ENCOUNTER → 2025-09-12 07:30 | Outpatient (BNV) | payer OTHER, SELFPAY | PROVIDERS: Emergency Provider Emergency Medicine; PCP Pediatrics; Visit Provider Internal Medicine Cardiovascular Disease | DX: R07.9 Chest pain, unspecified (principal) | CPT/HCPCS: 93010 ==

== ENCOUNTER → 2025-09-12 08:10 | Outpatient (BNV) | payer OTHER, SELFPAY | PROVIDERS: Emergency Provider Emergency Medicine; PCP Pediatrics; Visit Provider Radiology Diagnostic Radiology | DX: R51.9 Headache, unspecified (principal); R07.9 Chest pain, unspecified | CPT/HCPCS: 70450; 71045 ==